=== PATIENT | female | born 1950 | race Caucasian/White ===

== ENCOUNTER 2016-04-09 05:43 | Day surgery (SDC) | payer MEDICARE ==
[2016-04-09] MEDS ORDERED: Lactated Ringers 1,000 ML IV SCH (06:30)
[2016-04-09] MEDS ORDERED: Versed 2 MG/2 ML Injection IV ONE (08:00)
[2016-04-09] MEDS ORDERED: Ephedrine Sulfate 50 MG/ML IV ONE (08:00)
[2016-04-09] MEDS ORDERED: SUBLIMAZE 100 MCG/2 ML IV ONE (08:00)
[2016-04-09] MEDS ORDERED: DIPRIVAN 200 MG/20 ML IV ONE (08:00)
--- NOTE | 2016-04-09 08:31 | OP ---
SURGERY DATE: 04/09/16 SURGERY TIME: 721 PREOPERATIVE DIAGNOSIS: 1. SCREENING EXAM. POSTOPERATIVE DIAGNOSIS: 1. SIGMOID DIVERTICULOSIS. PROCEDURE: 1. Colonoscopy. SURGEON: Dr. Hubbard. ANESTHESIA: MAC, medications given by the Anesthesia Department. BRIEF HISTORY: The patient is a 65 y/o WF presenting now for her first screening colonoscopy. She was appraised of the risks of the procedure including the risk of perforation, phlebitis, untoward reaction to medication, bleeding, and missed lesions. The patient verbalized her understanding and desired to have the procedure performed. DESCRIPTION OF PROCEDURE: The patient was given the medications by the Anesthesia Department. She had continuous pulse oximetry, ECG monitoring, intermittent BP monitoring, and end tidal CO2 monitoring during the examination. She was placed in the left lateral decubitus position. A digital rectal examination was performed and revealed normal anal sphincter tone and no masses. The flexible Olympus pediatric colonoscope was used to intubate the rectum. A view of the colon was developed sequentially to the cecum. Upon insertion and withdrawal, including a retroflex view in the rectum, no mucosal lesions were encountered other than the sigmoid diverticula. The scope was removed from the patient who tolerated the procedure well and was sent back to OP recovery in good condition. The prep was noted to be fair.
[2016-04-09 08:47] VITALS: BP 132/41; PULSE 77; O2SAT 98
== END 2016-04-09 09:00 | disposition home or self-care (01) ==
LOC: SDC 05:43 → EDSTATUS 14:30
PROVIDERS: ATTEND Family Medicine
PROC: 0DJD8ZZ Inspection of Lower Intestinal Tract, Via Natural or Artificial Opening Endoscopic (ICD-10-PCS; principal; 2016-04-09)
DX: Z12.11 Encounter for screening for malignant neoplasm of colon (principal); K57.30 Diverticulosis of large intestine without perforation or abscess without bleeding; I10 Essential (primary) hypertension; E11.9 Type 2 diabetes mellitus without complications; F41.9 Anxiety disorder, unspecified; K21.9 Gastro-esophageal reflux disease without esophagitis
CPT/HCPCS: G0121 ×2; 00810; 82962; J2250; J2704; J3010

== ENCOUNTER 2016-08-21 18:46 | Emergency (ER) | payer MEDICARE ==
--- NOTE | 2016-08-21 19:04 | ERPHSYRPT ---
- History of Present Illness Time Seen by Provider: 08/21/16 18:59 Source: patient, family, EMS Exam Limitations: no limitations Patient Subjective Stated Complaint: near syncope Triage Nursing Assessment: states was sitting out at the [place] and sugar was 86 so she was eating and drinking a wine cooler and she 'got hot and eased myself down' denies loc. blood sugar en route 139. skin warm and dry. denies loc Physician History: pt felt light headed at [place] , di dnot fall and has no current symptomos and had no CP or abd pain; has had CHF in past but no stents were indicated. She is diabetic but glucose was 86; BP was elevated but imp[roved; normal neuro at this time; Witnessed: by family, bystander Prior Episodes: single episode today Timing/Duration: today Precipitating Factors: none Context: standing Loss of Consciousness: no loss of consciousness Charcter of event(s): felt faint Allergies/Adverse Reactions: No Known Drug Allergies Allergy (Verified 08/21/16 18:52) Home Medications: Albuterol Sulfate [Albuterol Sulfate Hfa] 2 puff IH QID 02/04/14 [History] Aspirin 81 mg PO DAILY 02/04/14 [History] Calcium Carbonate/Vitamin D3 [Calcium 600 + Vit D Tablet] 1 tab PO BID 02/04/14 [History] Magnesium Oxide 400 mg [Mag-Ox 400] 400 mg PO BID 02/04/14 [History] Metformin HCl 1000 mg [Glucophage 1000 MG] 1,000 mg PO BID 02/04/14 [History] Metoprolol Tartrate 50 mg [Lopressor 50 MG] 50 mg PO BID 02/04/14 [History ] Omeprazole 20 MG [Prilosec 20 mg] 20 mg PO DAILY 02/04/14 [History] Pravastatin Sodium 20 mg PO DAILY 02/04/14 [History] Amlodipine Besylate 5 mg [Norvasc 5 mg] 5 mg PO DAILY 04/06/16 [History] Lisinopril/Hydrochlorothiazide [Lisinopril-Hctz 20-12.5 mg Tab] 2 each PO DAILY 04/06/16 [History] Hydralazine HCl 10 mg PO TID 04/09/16 [History] Hx Tetanus, Diphtheria Vaccination/Date Given: Yes Hx Influenza Vaccination/Date Given: Yes Hx Pneumococcal Vaccination/Date Given: No Immunizations Up to Date: Yes - Past Medical History Pertinent Past Medical History: Yes Neurological History: No Pertinent History ENT History: No Pertinent History Cardiac History: Hypertension Respiratory History: No Pertinent History Endocrine Medical History: Diabetes Type II Musculoskeletal History: No Pertinent History GI Medical History: GERD History: No Pertinent History Psycho-Social History: Anxiety Female Reproductive Disorders: No Pertinent History - Past Surgical History Past Surgical History: Yes Neuro Surgical History: No Pertinent History Cardiac: Cardiac Catheterization Respiratory: No Pertinent History Gastrointestinal: No Pertinent History, Hernia Repair Genitourinary: No Pertinent History Musculoskeletal: No Pertinent History Female Surgical History: Tubal Ligation - Social History Smoking Status: Never smoker Exposure to second hand smoke: Yes Drug Use: none Patient Lives Alone: Yes - Review of Systems Constitutional: No Fever, No Chills Eyes: No Symptoms Ears, Nose, & Throat: No Symptoms Respiratory: No Cough, No Dyspnea Cardiac: No Chest Pain, No Edema, No Syncope Abdominal/Gastrointestinal: No Abdominal Pain, No Nausea, No Vomiting, No Diarrhea Genitourinary Symptoms: No Dysuria Musculoskeletal: No Back Pain, No Neck Pain Skin: No Rash Neurological: Dizziness, No Focal Weakness, No Headache, No Paralysis, No Seizure, No Sensory Changes, No Vertigo Psychological: No Symptoms Endocrine: No Symptoms Hematologic/Lymphatic: No Symptoms Immunological/Allergic: No Symptoms All Other Systems: Reviewed and Negative Physical Exam - Nursing Vital Signs Nursing Vital Signs: Initial Vital Signs Temperature 97.9 F Temperature Source Oral Pulse Rate 82 Respiratory Rate 16 Blood Pressure [] 148/51 Pain Intensity 0 - [place] Coma Scale Best Eye Response (Pita): (4) open spontaneously Best Verbal Response (Orient): (5) oriented Best Motor Response (Orient): (6) obeys commands Pita Total: 15 - Physical Exam General Appearance: no apparent distress, alert Eye Exam: bilateral eye: PERRL, EOMI Ears, Nose, Throat Exam: normal ENT inspection, pharynx normal, moist mucous membranes Neck Exam: normal inspection, non-tender, supple, full range of motion Respiratory: normal breath sounds, lungs clear, airway intact, No chest tenderness, No respiratory distress Cardiovascular: regular rate/rhythm, normal heart sounds, normal peripheral pulses, capillary refill <2 sec, No murmur, No pulse deficit Gastrointestinal: soft, No tenderness, No distention, No mass Pelvic Exam: deferred Rectal Exam: deferred Back Exam: normal inspection, normal range of motion, No CVA tenderness, No vertebral tenderness Extremity Exam: normal inspection, normal range of motion, pelvis stable, No tenderness Peripheral Pulses: carotid (R): 2+, carotid (L): 2+, femoral (R): 2+, femoral (L ): 2+, dorsalis-pedis (R): 2+, dorsalis-pedis (L): 2+ 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, oriented x 3, 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 ), Non-specific ST Changes - Radiology Exams Chest X-ray Interpretation: Reviewed by me, Other (mild cardiomeg and congestion.) Ordered Tests: Active Orders 24 hr Category Date Time Status Grain Elevator Agent STAT Care 08/21/16 19:04 Active Clean Catch Urine Specimen STAT Care 08/21/16 19:04 Active EKG-ER Only STAT Care 08/21/16 19:04 Active IV Insertion STAT Care 08/21/16 19:04 Active Pulse Oximetry (ED) STAT Care 08/21/16 19:04 Active CHEST 1 VIEW (PORTABLE) Stat Exams 08/21/16 19:04 Taken AMYLASE Stat Lab 08/21/16 19:33 Completed CBC W DIFF Stat Lab 08/21/16 19:33 Completed CMP Stat Lab 08/21/16 19:33 Completed CULTURE,URINE Stat Lab 08/21/16 19:11 Received LIPASE Stat Lab 08/21/16 19:33 Completed Lactic Acid Stat Lab 08/21/16 19:24 Results Lactic Acid Stat Lab 08/21/16 20:01 Ordered NT PRO BNP Stat Lab 08/21/16 19:33 Completed Occult Blood,Stool Other Stat Lab 08/21/16 19:11 Completed TROPONIN Stat Lab 08/21/16 19:33 Completed UA W/ MICROSCOPIC Stat Lab 08/21/16 19:11 Completed Medication Summary Generic Name Dose Route Start Last Admin Trade Name Rashmi PRN Reason Stop Dose Admin Sodium Chloride 1,000 mls @ 50 mls/hr 08/21/16 19:15 08/21/16 19:13 Sodium Chloride 0.9% 1000 Ml IV 09/20/16 19:14 50 mls/hr .Q20H ALBA Administration Ceftriaxone Sodium/Dextrose 1 g in 50 mls @ 100 mls/hr 08/21/16 20:15 20:22 Rocephin 1 Gm-D5w 50 Ml Bag IV 08/21/16 20:44 100 mls/hr STAT STA Administration Discontinued Medications Generic Name Dose Route Start Last Admin Trade Name Rashmi PRN Reason Stop Dose Admin Sodium Chloride 250 mls @ 999 mls/hr 08/21/16 20:00 08/21/16 20:14 Sodium Chloride 0.9% 1000 Ml IV 08/21/16 20:15 999 mls/hr .Q16M STA Administration Ceftriaxone Sodium/Dextrose Confirm 08/21/16 20:20 Rocephin 1 Gm-D5w 50 Ml Bag Administered 08/21/16 20:21 Dose 1 g in 50 mls @ ud IV .STK-MED ONE Lorazepam 0.5 mg 08/21/16 19:07 08/21/16 19:12 Ativan 0.5 Mg PO 08/21/16 19:08 0.5 mg STAT ONE Administration Lorazepam Confirm 08/21/16 19:11 Ativan 1 Mg Administered 08/21/16 19:12 Dose 1 mg .ROUTE .STK-MED ONE Lab/Rad Data: Laboratory Result Diagrams 08/21/16 19:33 08/21/16 19:33 Laboratory Results 08/21/16 08/21/16 08/21/16 Range/Units 19:33 19:33 19:24 WBC 9.3 (4.0-10.5) K/mm3 RBC 3.55 L (4.1-5.4) M/mm3 Hgb 8.9 L (12.0-16.0) gm/dl Hct 28.6 L (35-47) % MCV 80.6 (78-100) fl MCH 25.0 L (26-32) pg MCHC 31.1 L (32-36) g/dl RDW 16.2 H (11.5-14.0) % Plt Count 297 (150-450) K/mm3 MPV 11.4 H (6-9.5) fl Gran % 76.5 H (36.0-66.0) % Lymphocytes % 16.4 L (24.0-44.0) % Monocytes % 5.4 (0.0-12.0) % Eosinophils % 1.3 (0.00-5.0) % Basophils % 0.4 (0.0-0.4) % Basophils # 0.04 (0-0.4) Sodium 139 (136-145) mEq/L Potassium 4.0 (3.5-5.1) mEq/L Chloride 102 (98-107) mEq/L Carbon Dioxide 23.1 (21-32) mEq/L Anion Gap 17.9 H (5-15) MEQ/L BUN 25 H (9-20) mg/dL Creatinine 1.55 H (0.55-1.30) mg/dl Estimated GFR 35 ML/MIN Glucose 119 H (70-110) MG/DL Lactic Acid 3.3 H (0.4-2.0) Calcium 9.2 (8.5-10.1) mg/dL Total Bilirubin 0.20 (0.2-1.0) mg/dL AST 16 (15-37) U/L ALT 18 (12-78) U/L Alkaline Phosphatase 62 (46-116) U/L Troponin I 0.024 (0.000-0.056) ng/ml NT-Pro-B Natriuret Pep 395 H (0-125) pg/ml Serum Total Protein 8.1 (6.4-8.2) gm/dL Albumin 3.9 (3.4-5.0) g/dL Amylase 87 (25-115) U/L Lipase 208 (73-393) U/L Ur Collection Type Urine Color (YELLOW) Urine Appearance (CLEAR) Urine pH (5-6) Ur Specific [place] (1.005-1.025) Urine Protein (Negative) Urine Ketones (NEGATIVE) Urine Blood (0-5) Yogesh/ul Urine Nitrite (NEGATIVE) Urine Bilirubin (NEGATIVE) Urine Urobilinogen (0-1) mg/dL Ur Leukocyte Esterase (NEGATIVE) Urine Microscopic RBC (0-2) /HPF Urine Microscopic WBC (0-5) /HPF Ur Epithelial Cells (FEW) /HPF Urine Bacteria (NEGATIVE) /HPF Urine Mucus (NEGATIVE) /HPF Urine Glucose (NEGATIVE) mg/dL Stool Occult Blood (Negative) Specimen Received 08/21/16 08/21/16 Range/Units 19:11 19:11 WBC (4.0-10.5) K/mm3 RBC (4.1-5.4) M/mm3 Hgb (12.0-16.0) gm/dl Hct (35-47) % MCV (78-100) fl MCH (26-32) pg MCHC (32-36) g/dl RDW (11.5-14.0) % Plt Count (150-450) K/mm3 MPV (6-9.5) fl Gran % (36.0-66.0) % Lymphocytes % (24.0-44.0) % Monocytes % (0.0-12.0) % Eosinophils % (0.00-5.0) % Basophils % (0.0-0.4) % Basophils # (0-0.4) Sodium (136-145) mEq/L Potassium (3.5-5.1) mEq/L Chloride (98-107) mEq/L Carbon Dioxide (21-32) mEq/L Anion Gap (5-15) MEQ/L BUN (9-20) mg/dL Creatinine (0.55-1.30) mg/dl Estimated GFR ML/MIN Glucose (70-110) MG/DL Lactic Acid (0.4-2.0) Calcium (8.5-10.1) mg/dL Total Bilirubin (0.2-1.0) mg/dL AST (15-37) U/L ALT (12-78) U/L Alkaline Phosphatase (46-116) U/L Troponin I (0.000-0.056) ng/ml NT-Pro-B Natriuret Pep (0-125) pg/ml Serum Total Protein (6.4-8.2) gm/dL Albumin (3.4-5.0) g/dL Amylase (25-115) U/L Lipase (73-393) U/L Ur Collection Type CLEAN CATCH Urine Color YELLOW (YELLOW) Urine Appearance CLOUDY (CLEAR) Urine pH 6.0 (5-6) Ur Specific [place] 1.010 (1.005-1.025) Urine Protein TRACE (Negative) Urine Ketones NEGATIVE (NEGATIVE) Urine Blood 50 (0-5) Yogesh/ul Urine Nitrite POSITIVE (NEGATIVE) Urine Bilirubin NEGATIVE (NEGATIVE) Urine Urobilinogen NORMAL (0-1) mg/dL Ur Leukocyte Esterase 2+ (NEGATIVE) Urine Microscopic RBC 10-15 (0-2) /HPF Urine Microscopic WBC 25-50 (0-5) /HPF Ur Epithelial Cells MODERATE (FEW) /HPF Urine Bacteria MANY (NEGATIVE) /HPF Urine Mucus MANY (NEGATIVE) /HPF Urine Glucose NEGATIVE (NEGATIVE) mg/dL Stool Occult Blood NEGATIVE (Negative) Specimen Received 08/21/16 1930 - Progress Progress: improved, re-examined Progress Note: 08/21/16 20:32 discussed with family , pt and Dr hines covering cardio for Dr Ramos and all agree best to transfer pt to [facility] for further eval and Tx; Discussed with Dr.: Other (Dr Ruddy Hines at [facility]) Counseled pt/family regarding: lab results, diagnosis, need for follow-up, rad results - Departure Time of Disposition: 20:33 Departure Disposition: Transfer Clinical Impression: Diabetes mellitus, UTI (lower urinary tract infection), near syncope with elevated troponin Condition: Good Critical Care Time: No
[2016-08-21] MEDS ORDERED: Ativan 0.5 MG PO ONE (19:07)
[2016-08-21] MEDS ORDERED: Ativan 1 MG ONE (19:11)
[2016-08-21] MEDS ORDERED: Sodium Chloride 0.9% 1000 ML 1,000 ML IV SCH (19:15)
[2016-08-21 19:27] LABS: Lactic Acid 3.3 (0.4-2.0)
[2016-08-21 19:36] LABS: BASOPHIL % 0.4 % (0.0-0.4); Eosinophil % 1.3 % (0.00-5.0); Granulocytes % 76.5 % (36.0-66.0); Lymphocytes % 16.4 % (24.0-44.0); Mean Cell Volume 80.6 fl (78-100); Mean Platelet Volume 11.4 fl (6-9.5); Monocytes % 5.4 % (0.0-12.0); Platelet Count 297 K/mm3 (150-450); Red Blood Count 3.55 M/mm3 (4.1-5.4); Red Cell Distribution Width 16.2 % (11.5-14.0); White Blood Count 9.3 K/mm3 (4.0-10.5)
[2016-08-21 19:52] LABS: ADD URINE CULTURE? YES (NO); Bacteria MANY /HPF (NEGATIVE); Bilirubin NEGATIVE (NEGATIVE); Blood 50 Ery/ul (0-5); COMPLETE URINE MICROSCOPIC? YES; Collection Type CLEAN CATCH; Epithelial Cells MODERATE /HPF (FEW); Glucose NEGATIVE (NEGATIVE); Leukocyte Esterase 2+ (NEGATIVE); Mucus MANY /HPF (NEGATIVE); WBC 25-50 /HPF (0-5)
[2016-08-21 20:00] LABS: ALBUMIN 3.9 g/dL (3.4-5.0); ANION GAP 17.9 MEQ/L (5-15); BILIRUBIN,TOTAL 0.2 mg/dL (0.2-1.0); Carbon Dioxide 23.1 mEq/L (21-32); TROPONIN 0.024 ng/ml (0.000-0.056); Total Protein 8.1 gm/dL (6.4-8.2)
[2016-08-21] MEDS ORDERED: ROCEPHIN 1 Gm-D5w 50 ml Bag** 1 G/50 ML IVPB IV STA (20:15)
[2016-08-21] MEDS ORDERED: ROCEPHIN 1 Gm-D5w 50 ml Bag** 1 G/50 ML IVPB IV ONE (20:20)
[2016-08-21 21:04] VITALS: BP 135/97; PULSE 81; O2SAT 95
--- NOTE | 2016-08-22 08:25 | XRAY ---
Indication: Near syncope. Comparison: January 24, 2009 Portable chest remains clear. Heart and mediastinal structures within normal limits for AP portable technique. Bony thorax intact again with mild osteopenia and degenerative changes. Impression: Stable nonacute chest.
== END 2016-08-21 21:18 | disposition short-term general hospital (02) ==
LOC: ED 18:46
DX: E11.9 Type 2 diabetes mellitus without complications (principal); N39.0 Urinary tract infection, site not specified; R55 Syncope and collapse; R79.1 Abnormal coagulation profile; R42 Dizziness and giddiness; D64.9 Anemia, unspecified
CPT/HCPCS: 36000; 36415; 71010; 80053; 81000; 82150; 82272; 83605; 83690; 83880; 84484; 85025; 87086; 93005; 93041; 96360; 99285; J0696; A9270-GY

== ENCOUNTER 2017-02-11 15:03 | Inpatient (IN) | payer MEDICARE ==
--- NOTE | 2017-02-11 15:28 | ERPHSYRPT ---
- History of Present Illness Time Seen by Provider: 02/11/17 15:15 Source: patient Exam Limitations: clinical condition Physician History: 66 y/o female with history of ME, DM and HTN brought in by ambulance for acute onset confusion, difficulty remembering and saying words that started at 12pm. Pt states that she feels off and a mild headache. Pt denies any fall, weakness, numbness, heaviness of tongue, dizziness, headache, chest pain, shortness of breath, chest pain or palpitations. Pt is on ASA. Pt lives with her daughter but could not remember her daughter's name. Timing/Duration: today Character of Deficits: unable to speak Baseline/Normal Cognition: alert but confused Current Cognition: alert but confused Associated Symptoms: confusion Allergies/Adverse Reactions: No Known Drug Allergies Allergy (Verified 08/21/16 18:52) Home Medications: Albuterol Sulfate [Albuterol Sulfate Hfa] 2 puff IH QID 02/04/14 [History] Aspirin 81 mg PO DAILY 02/04/14 [History] Calcium Carbonate/Vitamin D3 [Calcium 600 + Vit D Tablet] 1 tab PO BID 02/04/14 [History] Magnesium Oxide 400 mg [Mag-Ox 400] 400 mg PO BID 02/04/14 [History] Metformin HCl 1000 mg [Glucophage 1000 MG] 1,000 mg PO BID 02/04/14 [History] Metoprolol Tartrate 50 mg [Lopressor 50 MG] 50 mg PO BID 02/04/14 [History ] Omeprazole 20 MG [Prilosec 20 mg] 20 mg PO DAILY 02/04/14 [History] Pravastatin Sodium 20 mg PO DAILY 02/04/14 [History] Amlodipine Besylate 5 mg [Norvasc 5 mg] 5 mg PO DAILY 04/06/16 [History] Lisinopril/Hydrochlorothiazide [Lisinopril-Hctz 20-12.5 mg Tab] 2 each PO DAILY 04/06/16 [History] Hydralazine HCl 10 mg PO TID 04/09/16 [History] Hx Tetanus, Diphtheria Vaccination/Date Given: Yes Hx Influenza Vaccination/Date Given: Yes Hx Pneumococcal Vaccination/Date Given: No - Review of Systems Constitutional: No Fever, No Chills Eyes: No Symptoms Ears, Nose, & Throat: No Symptoms Respiratory: No Cough, No Dyspnea Cardiac: No Chest Pain, No Edema, No Syncope Abdominal/Gastrointestinal: No Abdominal Pain, No Nausea, No Vomiting, No Diarrhea Genitourinary Symptoms: No Dysuria Musculoskeletal: No Back Pain, No Neck Pain Skin: No Rash Neurological: Headache, Speech Changes, No Dizziness, No Focal Weakness, No Sensory Changes Psychological: No Symptoms Endocrine: No Symptoms All Other Systems: Reviewed and Negative - Past Medical History Pertinent Past Medical History: Yes Neurological History: No Pertinent History ENT History: No Pertinent History Cardiac History: Hypertension Respiratory History: No Pertinent History Endocrine Medical History: Diabetes Type II Musculoskeletal History: No Pertinent History GI Medical History: GERD History: No Pertinent History Psycho-Social History: Anxiety Female Reproductive Disorders: No Pertinent History - Past Surgical History Past Surgical History: Yes Neuro Surgical History: No Pertinent History Cardiac: Cardiac Catheterization Respiratory: No Pertinent History Gastrointestinal: No Pertinent History, Hernia Repair Genitourinary: No Pertinent History Musculoskeletal: No Pertinent History Female Surgical History: Tubal Ligation - Social History Smoking Status: Never smoker Exposure to second hand smoke: Yes Drug Use: none Patient Lives Alone: Yes - Nursing Vital Signs Nursing Vital Signs: Initial Vital Signs Temperature 98.6 F 02/11/17 15:04 Pulse Rate 89 02/11/17 15:04 Respiratory Rate 20 02/11/17 15:04 Blood Pressure 141/86 02/11/17 15:04 O2 Sat by Pulse Oximetry 98 02/11/17 15:04 Pain Scale Pain Intensity 4 - [place] Coma Scale Best Eye Response (Pita): (4) open spontaneously Best Verbal Response ([place]): (3) inappropriate words Best Motor Response ([place]): (6) obeys commands Pita Total: 13 - Physical Exam General Appearance: no apparent distress, alert Eye Exam: bilateral eye: PERRL, EOMI Ears, Nose, Throat Exam: normal ENT inspection, moist mucous membranes Neck Exam: normal inspection, non-tender, supple Respiratory: normal breath sounds, lungs clear, airway intact, No respiratory distress Cardiovascular: regular rate/rhythm, No edema Gastrointestinal: soft, No tenderness, No distention Back Exam: normal inspection Extremity Exam: normal inspection, No pedal edema 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, 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 Exam: normal hearing, abnormal speech, tongue midline, No normal speech Coordination/Gait: normal finger to nose, normal gait Motor/Sensory: no motor deficit, no sensory deficit, no pronator drift Skin Exam: normal color, warm, dry, No rash SpO2 Interpretation: normal - Course Nursing assessment & vital signs reviewed: Yes EKG Interpreted by Me: RATE (HR 90), NORMAL AXIS, NORMAL INTERVALS, NORMAL QRS, Non-specific ST Changes Ordered Tests: Active Orders 24 hr Category Date Time Status Correctional Case Records Supervisor STAT Care 02/11/17 15:21 Active EKG-ER Only STAT Care 02/11/17 15:21 Active Breaux [Catheter-Elmer Breaux] STAT Care 02/11/17 16:49 Active IV Insertion STAT Care 02/11/17 15:21 Active NPO (ED) STAT Care 02/11/17 15:21 Active CHEST 1 VIEW (PORTABLE) Stat Exams 02/11/17 15:[address] ANGIOGRAPHY NECK [CT] Stat Exams 02/11/17 15:59 Taken CTA HEAD W AND/OR WO CONTRAST [CT] Stat Exams 02/11/17 15:59 Taken HEAD WITHOUT CONTRAST [CT] Stat Exams 02/11/17 15:21 Completed CBC W DIFF Stat Lab 02/11/17 15:25 Completed CMP Stat Lab 02/11/17 15:25 Completed CULTURE,URINE Stat Lab 02/11/17 15:21 Received ESR [Erythrocyte Sedimentation Rate] Stat Lab 02/11/17 15:25 Completed PTT Stat Lab 02/11/17 16:13 Completed TROPONIN Q3H Lab 02/11/17 15:25 Completed TROPONIN Q3H Lab 02/12/17 00:30 Ordered TROPONIN Q3H Lab 02/12/17 03:30 Ordered UA W/ MICROSCOPIC Stat Lab 02/11/17 15:21 Completed Medication Summary Discontinued Medications Generic Name Dose Route Start Last Admin Trade Name Freq PRN Reason Stop Dose Admin Aspirin 325 mg 02/11/17 15:59 02/11/17 16:47 Ecotrin 325 Mg PO 02/11/17 16:00 325 mg ONCE ONE Administration Clopidogrel Bisulfate 75 mg 02/11/17 19:08 Plavix 75 Mg Tablet PO 02/11/17 19:09 STAT ONE Sodium Chloride 1,000 mls @ 999 mls/hr 02/11/17 16:15 02/11/17 16:47 Sodium Chloride 0.9% 1000 Ml IV 02/11/17 17:15 999 mls/hr .Q1H1M STA Administration Sodium Chloride Confirm 12/22/17 16:41 Sodium Chloride 0.9% 1000 Ml Administered 02/11/17 16:42 Dose 1,000 mls @ ud .ROUTE .STK-MED ONE Lab/Rad Data: Laboratory Result Diagrams 02/11/17 15:25 02/11/17 15:25 Laboratory Results 02/11/17 02/11/17 02/11/17 Range/Units 16:13 15:25 15:25 WBC (4.0-10.5) K/mm3 RBC (4.1-5.4) M/mm3 Hgb (12.0-16.0) gm/dl Hct (35-47) % MCV (78-100) fl MCH (26-32) pg MCHC (32-36) g/dl RDW (11.5-14.0) % Plt Count (150-450) K/mm3 MPV (6-9.5) fl Gran % (36.0-66.0) % Lymphocytes % (24.0-44.0) % Monocytes % (0.0-12.0) % Eosinophils % (0.00-5.0) % Basophils % (0.0-0.4) % Basophils # (0-0.4) ESR 34 H (0-20) mm/hr APTT 29.6 (25.3-37.0) SECONDS Sodium 137 (136-145) mEq/L Potassium 4.1 (3.5-5.1) mEq/L Chloride 102 (98-107) mEq/L Carbon Dioxide 25.2 (21-32) mEq/L Anion Gap 14.1 (5-15) MEQ/L BUN 24 H (9-20) mg/dL Creatinine 1.21 (0.55-1.30) mg/dl Estimated GFR 47 ML/MIN Glucose 115 H (70-110) MG/DL Calcium 9.6 (8.5-10.1) mg/dL Total Bilirubin 0.30 (0.2-1.0) mg/dL AST 19 (15-37) U/L ALT 18 (12-78) U/L Alkaline Phosphatase 62 (46-116) U/L Troponin I (0.000-0.056) ng/ml Serum Total Protein 8.4 H (6.4-8.2) gm/dL Albumin 4.1 (3.4-5.0) g/dL Ur Collection Type Urine Color (YELLOW) Urine Appearance (CLEAR) Urine pH (5-6) Ur Specific [place] (1.005-1.025) Urine Protein (Negative) Urine Ketones (NEGATIVE) Urine Blood (0-5) Yogesh/ul Urine Nitrite (NEGATIVE) Urine Bilirubin (NEGATIVE) Urine Urobilinogen (0-1) mg/dL Ur Leukocyte Esterase (NEGATIVE) Urine Microscopic RBC (0-2) /HPF Urine Microscopic WBC (0-5) /HPF Ur Epithelial Cells (FEW) /HPF Urine Bacteria (NEGATIVE) /HPF Urine Culture Reflexed (NO) Urine Glucose (NEGATIVE) mg/dL Specimen Received 02/11/17 02/11/17 02/11/17 Range/Units 15:25 15:25 15:21 WBC 11.5 H (4.0-10.5) K/mm3 RBC 3.83 L (4.1-5.4) M/mm3 Hgb 9.5 L (12.0-16.0) gm/dl Hct 30.6 L (35-47) % MCV 79.9 (78-100) fl MCH 24.8 L (26-32) pg MCHC 31.0 L (32-36) g/dl RDW 16.6 H (11.5-14.0) % Plt Count 278 (150-450) K/mm3 MPV 11.3 H (6-9.5) fl Gran % 72.5 H (36.0-66.0) % Lymphocytes % 21.5 L (24.0-44.0) % Monocytes % 4.6 (0.0-12.0) % Eosinophils % 1.1 (0.00-5.0) % Basophils % 0.3 (0.0-0.4) % Basophils # 0.04 (0-0.4) ESR (0-20) mm/hr APTT (25.3-37.0) SECONDS Sodium (136-145) mEq/L Potassium (3.5-5.1) mEq/L Chloride (98-107) mEq/L Carbon Dioxide (21-32) mEq/L Anion Gap (5-15) MEQ/L BUN (9-20) mg/dL Creatinine (0.55-1.30) mg/dl Estimated GFR ML/MIN Glucose (70-110) MG/DL Calcium (8.5-10.1) mg/dL Total Bilirubin (0.2-1.0) mg/dL AST (15-37) U/L ALT (12-78) U/L Alkaline Phosphatase (46-116) U/L Troponin I 0.018 (0.000-0.056) ng/ml Serum Total Protein (6.4-8.2) gm/dL Albumin (3.4-5.0) g/dL Ur Collection Type VOID Urine Color STRAW (YELLOW) Urine Appearance CLEAR (CLEAR) Urine pH 8.0 (5-6) Ur Specific [place] 1.005 (1.005-1.025) Urine Protein 30 (Negative) Urine Ketones NEGATIVE (NEGATIVE) Urine Blood 5-10 (0-5) Yogesh/ul Urine Nitrite NEGATIVE (NEGATIVE) Urine Bilirubin NEGATIVE (NEGATIVE) Urine Urobilinogen NORMAL (0-1) mg/dL Ur Leukocyte Esterase TRACE (NEGATIVE) Urine Microscopic RBC 0-2 (0-2) /HPF Urine Microscopic WBC 2-5 (0-5) /HPF Ur Epithelial Cells RARE (FEW) /HPF Urine Bacteria FEW (NEGATIVE) /HPF Urine Culture Reflexed YES (NO) Urine Glucose NEGATIVE (NEGATIVE) mg/dL Specimen Received 02/11/17 1510 - Progress Progress: improved Progress Note: 02/11/17 19:10 The patient has regained her speech. She is speaking with more clarity and now remembers her name. The initial CT scan head is within normal limits. The CTA head and neck shows left sided 50% ICA stenosis. Pt was given a dose of ASA 325mg and plavix 75mg. The rest of the cardiac workup is within normal limits. The patient has been admitted to Dr Cazares for TIA. - Departure Time of Disposition: 19:12 Departure Disposition: In-patient Admission Clinical Impression: TIA (transient ischemic attack) Qualifiers: Transient cerebral ischemia type: unspecified Qualified Code(s): G45.9 - Transient cerebral ischemic attack, unspecified Condition: Fair Critical Care Time: Yes Critical Care Time(excluding separately billable procedures): 75-104 minutes Referrals: MAYANK LYNN [Primary Care Provider] -
[2017-02-11 15:35] LABS: BASOPHIL % 0.3 % (0.0-0.4); Basophil (Absolute #) 0.04 (0-0.4); Eosinophil % 1.1 % (0.00-5.0); Eosinophil (Absolute #) 0.13 (0-0.5); Granulocyte Absolute (ANC) 8.36 (1.4-6.9); Granulocytes % 72.5 % (36.0-66.0); Hematocrit 30.6 % (35-47); Hemoglobin 9.5 gm/dl (12.0-16.0); Lymphocyte (Absolute #) 2.48 (1.0-4.6); Lymphocytes % 21.5 % (24.0-44.0); Mean Cell Volume 79.9 fl (78-100); Mean Corpuscular Hemoglobin 24.8 pg (26-32); Mean Platelet Volume 11.3 fl (6-9.5); Monocyte (Absolute #) 0.53 (0.0-1.3); Monocytes % 4.6 % (0.0-12.0); Platelet Count 278 K/mm3 (150-450); Red Blood Count 3.83 M/mm3 (4.1-5.4); Red Cell Distribution Width 16.6 % (11.5-14.0); White Blood Count 11.5 K/mm3 (4.0-10.5)
[2017-02-11 15:48] LABS: Appearance CLEAR (CLEAR); Bilirubin NEGATIVE (NEGATIVE); Glucose NEGATIVE (NEGATIVE); Ketones NEGATIVE (NEGATIVE); Leukocyte Esterase TRACE (NEGATIVE); Nitrite NEGATIVE (NEGATIVE); Protein,Urine Dip 30 (Negative); Specific Gravity 1.005 (1.005-1.025); Urobilinogen NORMAL mg/dL (0-1)
[2017-02-11 15:49] LABS: Bacteria FEW /HPF (NEGATIVE); Epithelial Cells RARE /HPF (FEW)
[2017-02-11 15:53] LABS: ALBUMIN 4.1 g/dL (3.4-5.0); ANION GAP 14.1 MEQ/L (5-15); BILIRUBIN,TOTAL 0.3 mg/dL (0.2-1.0); Calcium 9.6 mg/dL (8.5-10.1); Carbon Dioxide 25.2 mEq/L (21-32); Creatinine 1 1.21 mg/dl (0.55-1.30); Potassium 4.1 mEq/L (3.5-5.1); Total Protein 8.4 gm/dL (6.4-8.2)
--- NOTE | 2017-02-11 15:53 | XRAY ---
Indication: CVA. Multiple contiguous axial images obtained through the head without contrast. Comparison: None Age-appropriate global atrophy. No acute intracranial hemorrhage, abnormal extra-axial fluid collection, or mass effect. Fourth ventricle is midline without hydrocephalus. Sood-white matter differentiation is preserved. Bony calvarium intact. There is partial opacification of the inferior right mastoid air cells. Remaining visualized paranasal sinuses and left mastoid air cells are clear. Impression: No acute intracranial abnormalities. Incidental partial opacification of the right mastoid air cells presumed inflammatory. CTDI 70.55
[2017-02-11] MEDS ORDERED: Ecotrin 325 MG PO ONE (15:59)
--- NOTE | 2017-02-11 16:02 | XRAY ---
Indication: Patient states "doesn't feel right." CVA. Comparison: August 21, 2016. Portable chest again demonstrates normal heart and lungs. Bony thorax intact again with mild osteopenia and degenerative changes. No new/acute findings. Impression: Stable nonacute chest.
[2017-02-11] MEDS ORDERED: Sodium Chloride 0.9% 1000 ML 1,000 ML IV STA (16:15)
[2017-02-11] MEDS ORDERED: Sodium Chloride 0.9% 1000 ML 1,000 ML ONE (16:41)
[2017-02-11] MEDS ORDERED: PLAVIX 75 MG Tablet PO ONE (19:08)
[2017-02-11] MEDS ORDERED: Zofran 4 MG/2 ML VIAL IV PRN (19:13)
[2017-02-11] MEDS ORDERED: TYLENOL 325 MG PO PRN (19:13)
[2017-02-11] MEDS ORDERED: Senokot-S Tablet PO PRN (19:13)
[2017-02-11] MEDS ORDERED: MAALOX ES 30 ML UNIT DOSE PO PRN (19:13)
[2017-02-11] MEDS ORDERED: MILK OF MAGNESIA 30 ML PO PRN (19:13)
[2017-02-11] MEDS ORDERED: PLAVIX 75 MG Tablet ONE (19:14)
--- NOTE | 2017-02-11 21:13 | XRAY ---
Indication: CVA. Conventional CTA neck was performed using 60 cc Isovue 370 contrast. Two-dimensional sagittal and coronal reformatted images obtained. Comparison: None Aortic arch not included. Right common carotid artery is normal in course and caliber. Minimal calcified plaquing at the level of the bulb and mild calcified plaquing in the proximal internal carotid artery producing less than 50% stenosis. External carotid artery normal in CTA appearance. Left common carotid artery normal in course and caliber with minimal calcified plaquing. Mild/moderate calcified plaquing in the proximal internal carotid artery producing 50-60% stenosis. External carotid artery normal in CTA appearance. Left vertebral artery is dominant in size. Distal right vertebral artery is occluded. Distal left vertebral artery is patent supplying the basilar artery and posterior cerebral circulation. Jugular veins bilaterally patent. Visualized soft tissues demonstrate small centimeter/subcentimeter cervical lymph nodes bilaterally. Thyroid gland enhances homogeneously. Supra and infraglottic airway widely patent. Underlying cervical spine intact with minimal/mild multilevel degenerative disc disease, greatest at the C5-C6 level. Lung apices are clear. Impression: 1. Right carotid circulation demonstrates minimal plaquing at the level of the bulb and proximal internal carotid artery producing less than 50% stenosis. 2. Left carotid circulation demonstrates mild/moderate plaquing greatest in the proximal internal carotid artery producing 50-60% stenosis. 3. Dominant left vertebral artery supplying the basilar artery and posterior cerebral circulation. Distal right vertebral artery occlusion. CTDI 92.44
--- NOTE | 2017-02-11 21:20 | XRAY ---
Indication: CVA. Conventional CTA head was performed using 60 cc Isovue 370 contrast. Two-dimensional sagittal and coronal reformatted images obtained. Comparison: None CTA neck reported separately. Distal internal carotid arteries are bilaterally symmetric. There is minimal calcifications of the parasellar internal carotid arteries bilaterally without critical stenosis/obstruction. Normal carotid terminus with normal branching A1 and M1 segments bilaterally. The more distal anterior cerebral and middle cerebral arteries including anterior communicating arteries are normal in CTA appearance. Left posterior communicating artery not seen either occluded or too small for resolution of exam. Posterior circulation demonstrates occluded distal right vertebral artery and patent left vertebral artery. Basilar artery is normal in course and caliber. Basilar tip and posterior cerebral arteries are normal in CTA appearance. Whole brain images are negative for abnormal enhancing intra-or extra-axial mass. No thrombus seen in the superior/inferior sagittal sinuses or venous sinuses. CT head reported separately. Impression: 1. Minimal calcifications in the parasellar internal carotid arteries without critical stenosis/obstruction. 2. Occluded distal right vertebral artery with patent left artery supplying basilar artery and posterior cerebral circulation. 3. Remaining CTA is negative. CTDI 92.44
[2017-02-11] MEDS ORDERED: Apresoline 25 MG TABLET PO SCH (22:00)
[2017-02-11] MEDS: Sodium Chloride 0.9% 1000 ML 1,000 ML IV SCH (22:07)
[2017-02-11] MEDS: Lopressor 50 MG PO SCH (22:07)
[2017-02-12] MEDS ORDERED: MILK OF MAGNESIA 30 ML PO PRN (01:11)
[2017-02-12] MEDS ORDERED: Zofran 4 MG/2 ML VIAL IV PRN (01:11)
[2017-02-12] MEDS ORDERED: Nitrostat 0.4 MG Tablet SL PRN (01:11)
[2017-02-12] MEDS: ENOXAPARIN SODIUM SQ SCH ×2 (02:55→11:10)
[2017-02-12 03:48] LABS: Hematocrit 26.6 % (35-47); Hemoglobin 8.3 gm/dl (12.0-16.0); Mean Cell Volume 79.4 fl (78-100); Mean Corpuscular Hgb Concent. 31.2 g/dl (32-36); Mean Platelet Volume 10.9 fl (6-9.5); Platelet Count 284 K/mm3 (150-450); Red Blood Count 3.35 M/mm3 (4.1-5.4); Red Cell Distribution Width 16.8 % (11.5-14.0); White Blood Count 8.5 K/mm3 (4.0-10.5)
[2017-02-12] MEDS: PROVENTIL COMMON CANISTER IH SCH ×5 (03:57→20:33)
[2017-02-12 04:04] LABS: Mean Corpuscular Hemoglobin 24.7 pg (26-32)
[2017-02-12 04:18] LABS: Risk Ratio 2.7
[2017-02-12 04:19] LABS: ALBUMIN 3.3 g/dL (3.4-5.0); ANION GAP 12.1 MEQ/L (5-15); BILIRUBIN,TOTAL 0.4 mg/dL (0.2-1.0); Calcium 8.6 mg/dL (8.5-10.1); Carbon Dioxide 23.9 mEq/L (21-32); Creatinine 1 1.17 mg/dl (0.55-1.30); Potassium 3.7 mEq/L (3.5-5.1); Total Protein 6.8 gm/dL (6.4-8.2)
[2017-02-12] MEDS: Advair Hfa 115/21 Common canister IH SCH ×2 (08:12→20:33)
[2017-02-12] MEDS: Lopressor 50 MG PO SCH ×2 (09:03→21:26)
[2017-02-12] MEDS: Apresoline 25 MG TABLET PO SCH ×3 (09:05→21:25)
[2017-02-12] MEDS ORDERED: Ecotrin 325 MG PO SCH (10:00)
[2017-02-12] MEDS: Sodium Chloride 0.9% 1000 ML 1,000 ML IV SCH (13:00)
--- NOTE | 2017-02-12 15:46 | PCM.HP ---
History of Present Illness - Chief Complaint Chief Complaint: Shortness of Breath History of Present Illness: is a 66 year old female with DM II who started feeling "bad" (weak) yesterday then couldn't speak correctly and couldn't remember her daughter's name. A family member said she looked "corrigan." She denies any paresthesias ( aside from chronic pins and needles in L distal arm), chest pain, chest pressure , arm pain, back pain, or neck pain. She had an episode in 2005 in which she felt weak and she states Dr. Ramos did a heart cath and couldn't decide if she'd had a TIA or a heart attack. - Review of Systems Respiratory: Cough (chronic, a.m.) Neurological: Dizziness (felt lightheaded yesterday), Speech Changes Psychological: No Depression, No Suicidal Ideations All Other Systems: Reviewed and Negative Medications & Allergies Home Medications: Home Medication List Albuterol Sulfate [Albuterol Sulfate Hfa] 2 puff IH QID 02/04/14 [History Confirmed 02/11/17] Aspirin 81 mg PO DAILY 02/04/14 [History Confirmed 02/11/17] Calcium Carbonate/Vitamin D3 [Calcium 600 + Vit D Tablet] 1 tab PO BID 02/04/14 [History Confirmed 02/12/17] Magnesium Oxide 400 mg [Mag-Ox 400] 400 mg PO BID 02/04/14 [History Confirmed 02/11/17] Metformin HCl 1000 mg [Glucophage 1000 MG] 1,000 mg PO BID 02/04/14 [History Confirmed 02/11/17] Metoprolol Tartrate 50 mg [Lopressor 50 MG] 50 mg PO BID 02/04/14 [ History Confirmed 02/11/17] Omeprazole 20 MG [Prilosec 20 mg] 20 mg PO DAILY 02/04/14 [History Confirmed ] Pravastatin Sodium 20 mg PO DAILY 02/04/14 [History Confirmed 02/11/17] Amlodipine Besylate 5 mg [Norvasc 5 mg] 5 mg PO DAILY 04/06/16 [History Confirmed 02/11/17] Lisinopril/Hydrochlorothiazide [Lisinopril-Hctz 20-12.5 mg Tab] 2 each PO DAILY 04/06/16 [History Confirmed 02/11/17] Hydralazine HCl 10 mg PO TID 04/09/16 [History Confirmed 02/11/17] Insulin Aspart [NovoLOG Insulin] 5 units SQ TIDWMEALS 02/12/17 [History Confirmed 02/12/17] Insulin Detemir [Levemir] 25 units SQ QHS 02/12/17 [History Confirmed 02/12/17] Loratadine 10 mg [Claritin 10 mg] 10 mg PO BID 02/12/17 [History Confirmed 02/12/17] Allergies/Adverse Reactions: Allergies Allergy/AdvReac Type Severity Reaction Status Date / Time No Known Drug Allergies Allergy Verified 08/21/16 18:52 - Past Medical History Past Medical History: Yes Neurological History: No Pertinent History ENT History: No Pertinent History Cardiac History: Hypertension Respiratory History: No Pertinent History Endocrine Medical History: Diabetes Type II Musculoskelatal History: No Pertinent History GI Medical History: GERD History: No Pertinent History Pyscho-Social History: Anxiety Reproductive Disorders: No Pertinent History - Female History Are you now?: No - Past Surgical History Past Surgical History: Yes Neuro Surgical History: No Pertinent History Cardiac History: Cardiac Catheterization Respiratory Surgery: No Pertinent History GI Surgical History: No Pertinent History, Hernia Repair Genitourinary Surgical Hx: No Pertinent History Musculskeletal Surgical Hx: No Pertinent History Female Surgical History: Tubal Ligation - Social History Smoking Status: Never smoker Exposure to second hand smoke: No Alcohol: None Drug Use: none - Physical Exam Vital Signs: Vital Signs - 24 hr Temp Pulse Resp BP Pulse Ox 02/12/17 12:00 97 02/12/17 11:22 78 20 97 02/12/17 11:16 98.4 F 74 20 117/60 98 02/12/17 08:12 74 20 97 02/12/17 08:00 97 02/12/17 07:32 98.2 F 70 20 128/64 97 02/12/17 04:00 98.7 F 73 18 133/62 96 02/12/17 03:57 71 18 95 02/12/17 00:00 99.1 F 73 18 122/56 95 02/11/17 20:00 99.6 F 87 16 151/67 97 02/11/17 19:54 98.5 F 73 20 130/87 96 02/11/17 16:48 80 18 95 General Appearance: no apparent distress, alert, obese Neurologic Exam: oriented x 3, cooperative, press operator automatic II-XII nml as tested (CN III- XII normal) Eye Exam: eyes nml inspection Ears, Nose, Throat Exam: moist mucous membranes Respiratory Exam: normal breath sounds, lungs clear, No crackles/rales, No rhonchi, No wheezing Cardiovascular Exam: regular rate/rhythm, normal heart sounds, No murmur Gastrointestinal/Abdomen Exam: soft, normal bowel sounds, No tenderness, No distention, No mass Back Exam: normal inspection, No rash Extremity Exam: swelling (trace LLE pretibial edema) Skin Exam: normal color, warm, dry, No rash Results - Labs Lab/Micro Results: Accuchecks Date 02/12/17 Date 02/12/17 Date 02/11/17 Time 11:30 Time 07:30 Time 21:30 Accucheck Value: 160 Accucheck Value: 115 Accucheck Value: 110 Lab Results-Last 24 Hours 02/12/17 02/12/17 02/12/17 Range/Units 00:43 03:45 03:45 WBC (4.0-10.5) K/mm3 RBC (4.1-5.4) M/mm3 Hgb (12.0-16.0) gm/dl Hct (35-47) % MCV (78-100) fl MCH (26-32) pg MCHC (32-36) g/dl RDW (11.5-14.0) % Plt Count (150-450) K/mm3 MPV (6-9.5) fl Sodium (136-145) mEq/L Potassium (3.5-5.1) mEq/L Chloride (98-107) mEq/L Carbon Dioxide (21-32) mEq/L Anion Gap (5-15) MEQ/L BUN (9-20) mg/dL Creatinine (0.55-1.30) mg/dl Estimated GFR ML/MIN Glucose (70-110) MG/DL Calcium (8.5-10.1) mg/dL Total Bilirubin (0.2-1.0) mg/dL AST (15-37) U/L ALT (12-78) U/L Alkaline Phosphatase (46-116) U/L Troponin I 0.994 H* 0.948 H* (0.000-0.056) ng/ml Serum Total Protein (6.4-8.2) gm/dL Albumin (3.4-5.0) g/dL Triglycerides 59 (30-200) mg/dL Cholesterol 150 (100-200) mg/dL LDL Cholesterol 80 (5-99) mg/dL HDL Cholesterol 56 (35-60) mg/dL Heart Disease Risk Ratio 2.7 02/12/17 02/12/17 Range/Units 03:45 03:45 WBC 8.5 (4.0-10.5) K/mm3 RBC 3.35 L (4.1-5.4) M/mm3 Hgb 8.3 L (12.0-16.0) gm/dl Hct 26.6 L (35-47) % MCV 79.4 (78-100) fl MCH 24.7 L (26-32) pg MCHC 31.2 L (32-36) g/dl RDW 16.8 H (11.5-14.0) % Plt Count 284 (150-450) K/mm3 MPV 10.9 H (6-9.5) fl Sodium 139 (136-145) mEq/L Potassium 3.7 (3.5-5.1) mEq/L Chloride 107 (98-107) mEq/L Carbon Dioxide 23.9 (21-32) mEq/L Anion Gap 12.1 (5-15) MEQ/L BUN 19 (9-20) mg/dL Creatinine 1.17 (0.55-1.30) mg/dl Estimated GFR 49 ML/MIN Glucose 113 H (70-110) MG/DL Calcium 8.6 (8.5-10.1) mg/dL Total Bilirubin 0.40 (0.2-1.0) mg/dL AST 15 (15-37) U/L ALT 17 (12-78) U/L Alkaline Phosphatase 53 (46-116) U/L Troponin I (0.000-0.056) ng/ml Serum Total Protein 6.8 (6.4-8.2) gm/dL Albumin 3.3 L (3.4-5.0) g/dL Triglycerides (30-200) mg/dL Cholesterol (100-200) mg/dL LDL Cholesterol (5-99) mg/dL HDL Cholesterol (35-60) mg/dL Heart Disease Risk Ratio Accuchecks Date 02/12/17 Date 02/12/17 Date 02/11/17 Time 11:30 Time 07:30 Time 21:30 Accucheck Value: 160 Accucheck Value: 115 Accucheck Value: 110 - Other Procedures and Tests Respiratory Therapy 02/12/17 03:39 Respiratory MDI Q4H 02/12/17 06:30 Respiratory MDI BID 02/13/17 05:00 EKG ROUTINE 02/14/17 05:00 EKG ROUTINE Assessment/Plan (1) TIA (transient ischemic attack) Current Visit: Yes Status: Acute Qualifiers: Transient cerebral ischemia type: unspecified Qualified Code(s): G45.9 - Transient cerebral ischemic attack, unspecified Assessment & Plan: Possibly, with her sx of speech changes, unable to remember her daughter's name. She is currently on 325mg ASA daily. Was given one dose of plavix in the ER. On lovenox 40mg SQ daily while in hospital. She had a CTA neck with < 50% occlusion R carotid and 50-60% occlusion L carotid. CT head without acute findings. She did have occluded distal R vertebral artery but patent on the left. (2) Elevated troponin I level Current Visit: Yes Status: Acute Assessment & Plan: She has not had any chest pain or pressure, just the weakness and possibly looking corrigan yesterday. Her EKGs are negative for acute findings. She did have 2 elevated troponins then none were ordered after that and I'm unsure why. I discussed with the pt that we'll see what this current stat troponin (just drawn) looks like and I will discuss with Dr. Mueller, covering for Dr. Ramos. Code(s): R74.8 - ABNORMAL LEVELS OF OTHER SERUM ENZYMES (3) Diabetes mellitus Current Visit: No Status: Acute Qualifiers: Diabetes mellitus type: type 2 Diabetes mellitus complication status: with neurologic complications Diabetes mellitus complication detail: with unspecified neuropathy Diabetes mellitus retirement insulin use: without human services care specialist use Qualified Code(s): E11.40 - Type 2 diabetes mellitus with diabetic neuropathy, unspecified Code(s): E11.9 - TYPE 2 DIABETES MELLITUS WITHOUT COMPLICATIONS
[2017-02-12] MEDS ORDERED: PLAVIX 75 MG Tablet ONE (22:42)
[2017-02-13] MEDS: PROVENTIL COMMON CANISTER IH SCH ×3 (00:20→09:23)
[2017-02-13] MEDS: Sodium Chloride 0.9% 1000 ML 1,000 ML IV SCH (03:16)
[2017-02-13 07:41] VITALS: BP 126/61
[2017-02-13] MEDS: Advair Hfa 115/21 Common canister IH SCH (09:23)
[2017-02-13 09:25] VITALS: PULSE 94; O2SAT 97
[2017-02-13] MEDS ORDERED: NON-FORMULARY ITEM (Aspirin [Aspirin] 81 MG) PO SCH (10:00)
[2017-02-13] MEDS ORDERED: ECOTRIN 81 MG PO SCH (10:00)
[2017-02-13] MEDS ORDERED: NON-FORMULARY ITEM (Pravastatin Sodium [Pravastatin Sodium] 20 MG) PO SCH (10:00)
[2017-02-13] MEDS ORDERED: NON-FORMULARY ITEM (Omeprazole 20 Mg [Prilosec 20 Mg] 20 MG) PO SCH (10:00)
[2017-02-13] MEDS ORDERED: LISINOPRIL PO SCH (10:00)
[2017-02-13] MEDS ORDERED: hydroDIURIL 25 MG PO SCH (10:00)
[2017-02-13] MEDS ORDERED: CLARITIN 10 MG PO SCH (10:00)
[2017-02-13] MEDS ORDERED: Protonix 40MG Tablet PO SCH (10:00)
[2017-02-13] MEDS ORDERED: HYDROCHLOROTHIAZIDE PO SCH (10:00)
[2017-02-13] MEDS ORDERED: Zestril 20 MG PO SCH (10:00)
[2017-02-13] MEDS ORDERED: MAG-OX 400 PO SCH (10:00)
[2017-02-13] MEDS ORDERED: [UNRECOGNIZED DRUG - OTHER] PO SCH (10:00)
[2017-02-13] MEDS ORDERED: NORVASC 5 MG PO SCH (10:00)
--- NOTE | 2017-02-13 10:01 | PCM.DS ---
Discharge Summary Date of Admission: 02/11/17 19:50 Admitting Physician: EDNA GUSTAFSON Primary Care Provider: MAYANK LYNN Allergies Allergies No Known Drug Allergies Allergy (Verified 08/21/16 18:52) Hospital Summary - Hospital Course Hospital Course: Pt of Dr. Lynn admitted with an episode of feeling weak and unable to remember her daughter's name. No other paresthesias. She felt fine at the hospital. At admission and again upon my interview she completely denied any chest pain, chest pressure, arm pain, neck pain. She did have elevated troponins through her first night in the hospital (no EKG changes) and Dr. Arvind Mueller (on for Dr. Ramos) was called. I spoke with him the next day. He agreed with plavix and 81mg ASA daily. He did not want to transfer the patient, but he did want her to come see him in the office on the day of discharge as he will be in doing paperwork. Pt still without any complaint of chest pain. She has cough for the past 1 day and sinus drainage. she was nauseated and received zofran this morning. Tolerated a full breakfast. She went to the bathroom then felt dizzy for a minute. No syncope. Troponins came down through the night, although the last one wa s a little higher than the previous one (0.69 to 0.71). - Vitals & Intake/Output Vital Signs: Vital Signs Temperature 97.8 F 02/13/17 07:40 Pulse Rate 94 H 02/13/17 08:00 Respiratory Rate 18 02/13/17 08:00 Blood Pressure 126/61 02/13/17 07:40 O2 Sat by Pulse Oximetry 97 02/13/17 08:00 Intake & Output: Intake & Output 02/10/17 02/11/17 02/12/17 02/13/17 11:59 11:59 11:59 11:59 Intake Total 770 2624 Output Total 1650 4200 Balance -880 -1576 Weight 95.708 kg 97.069 kg - Lab Result Diagrams: 02/12/17 03:45 02/12/17 03:45 Lab Results-Last 24 Hrs: Accuchecks Date 02/13/17 Date 02/12/17 Date 02/12/17 Time 07:30 Time 16:30 Time 11:30 Accucheck Value: 124 Accucheck Value: 124 Accucheck Value: 146 Accucheck Value: 160 Lab Results-Last 24 Hours 02/12/17 02/12/17 02/12/17 Range/Units 00:45 15:05 17:55 Troponin I 0.717 H* 0.719 H* 0.661 H* (0.000-0.056) ng/ml 02/12/17 Range/Units 21:00 Troponin I 0.692 H* (0.000-0.056) ng/ml Micro Results-Entire Visit: Accuchecks Date 02/13/17 Date 02/12/17 Date 02/12/17 Time 07:30 Time 16:30 Time 11:30 Accucheck Value: 124 Accucheck Value: 124 Accucheck Value: 146 Accucheck Value: 160 - Procedures and Test Procedures and Tests throughout Hospitalization: Therapy Orders & Screens 02/11/17 23:15 EKG ROUTINE Comment: Diagnosis: Shortness of Breath 02/12/17 00:58 RT Screen per Nursing Assess ONCE Comment: Protocol Order Physician Instructions: Greater than 3 points order RT Admission Screen Reason For Exam: Triggered on Admission Diagnosis: Shortness of Breath Diagnosis: Shortness of Breath Home O2: No Asthma: Yes Home CPAP/BIPAP: No Home Nebs/MDI: Yes Total Points: 9 02/12/17 03:39 Respiratory MDI Q4H Comment: ALBUTEROL MDI Q4 Diagnosis: Shortness of Breath 02/12/17 05:00 EKG ROUTINE Comment: Diagnosis: Shortness of Breath 02/12/17 06:30 Respiratory MDI BID Comment: ADV 115/21 Diagnosis: Shortness of Breath 02/13/17 05:00 EKG ROUTINE Comment: Diagnosis: Shortness of Breath 02/14/17 05:00 EKG ROUTINE Comment: Diagnosis: Shortness of Breath Discharge Exam General Appearance: no apparent distress, alert, obese Neurologic Exam: oriented x 3, cooperative Skin Exam: normal color, warm, dry, No rash Eye Exam: eyes nml inspection Ears, Nose, Throat Exam: moist mucous membranes Neck Exam: normal inspection Respiratory Exam: normal breath sounds, lungs clear, No crackles/rales, No rhonchi, No wheezing Cardiovascular Exam: regular rate/rhythm, normal heart sounds, No murmur Extremity Exam: normal inspection, No pedal edema, No swelling Final Diagnosis/Problem List - Final Discharge Diagnosis/Problem (1) TIA (transient ischemic attack) Current Visit: Yes Status: Acute Assessment & Plan: Possibly - pt home on plavix and 81mg ASA daily. (2) Elevated troponin I level Current Visit: Yes Status: Acute Assessment & Plan: she is following up with Dr. Arvind Mueller today in the office per his instruction. Will have all her labs and EKGs copied for him to see today. (3) Diabetes mellitus Current Visit: No Status: Chronic (4) Cough Current Visit: Yes Status: Acute Assessment & Plan: New; lung sounds are clear. I warned pt of high incidence of influenza in the community; any fever needs to return to hospital for testing CARYN. - Discharge Disposition: Home, Self-Care Condition: Stable Prescriptions: New Clopidogrel Bisulfate 75 mg [PLAVIX 75 MG Tablet] 75 mg PO DAILY #30 tablet Continue Albuterol Sulfate [Albuterol Sulfate Hfa] 2 puff IH QID Omeprazole 20 MG [Prilosec 20 mg] 20 mg PO DAILY Metformin HCl 1000 mg [Glucophage 1000 MG] 1,000 mg PO BID Pravastatin Sodium 20 mg PO DAILY Calcium Carbonate/Vitamin D3 [Calcium 600 + Vit D Tablet] 1 tab PO BID Magnesium Oxide 400 mg [Mag-Ox 400] 400 mg PO BID Metoprolol Tartrate 50 mg [Lopressor 50 MG] 50 mg PO BID Amlodipine Besylate 5 mg [Norvasc 5 mg] 5 mg PO DAILY Lisinopril/Hydrochlorothiazide [Lisinopril-Hctz 20-12.5 mg Tab] 2 each PO DAILY Hydralazine HCl 10 mg PO TID Loratadine 10 mg [Claritin 10 mg] 10 mg PO BID Insulin Aspart [NovoLOG Insulin] 5 units SQ TIDWMEALS Insulin Detemir [Levemir] 25 units SQ QHS Aspirin 81 mg PO DAILY #30 tablet Follow up with: MAYANK LYNN [Primary Care Provider] -
[2017-02-13] MEDS: Lopressor 50 MG PO SCH (10:03)
[2017-02-13] MEDS: Apresoline 25 MG TABLET PO SCH (10:04)
[2017-02-13] MEDS ORDERED: NovoLOG Insulin SQ SCH (12:00)
[2017-02-13] MEDS ORDERED: INSULIN DETEMIR 25 UNIT SQ SCH (22:00)
[2017-02-13] MEDS ORDERED: ZOCOR 20MG PO SCH (22:00)
[2017-02-13] MEDS ORDERED: Lantus Insulin SQ SCH (22:00)
[2017-02-14] MEDS ORDERED: PLAVIX 75 MG Tablet PO SCH (10:00)
== END 2017-02-13 10:35 | disposition home or self-care (01) | DRG 69 ==
LOC: ED 15:03 → MED SURG 19:50
PROVIDERS: ADMIT Family Medicine; ATTEND Family Medicine
DX: G45.9 Transient cerebral ischemic attack, unspecified (principal); R79.89 Other specified abnormal findings of blood chemistry; E11.40 Type 2 diabetes mellitus with diabetic neuropathy, unspecified; I10 Essential (primary) hypertension; E11.9 Type 2 diabetes mellitus without complications; R05 Cough; Z79.4 Long term (current) use of insulin; K21.9 Gastro-esophageal reflux disease without esophagitis; F41.9 Anxiety disorder, unspecified; I25.2 Old myocardial infarction; R41.0 Disorientation, unspecified; Z79.82 Long term (current) use of aspirin; Z79.899 Other long term (current) drug therapy
CPT/HCPCS: 36000; 36415; 51702; 70450; 70496; 70498; 71010; 80053; 80061; 81000; 82962; 83721; 84484; 85025; 85027; 85652; 85730; 87086; 93005; 93041; 94640; 94760; 96360; 99285; J1650; J2405; A9270-GY

== ENCOUNTER 2023-12-29 03:33 | Emergency (ER) | payer MEDICARE ==
[2023-12-29 03:46] VITALS: TEMP 98.5
[2023-12-29] MEDS ORDERED: Lasix 40 MG/4 ML ONE (03:48)
[2023-12-29] MEDS ORDERED: Ntg 0.2MG/Ml in D5W GLASS*** 250 ML IV ONE (03:49)
[2023-12-29] MEDS: Lasix 40 MG/4 ML IV ONE (03:50)
--- NOTE | 2023-12-29 03:52 | ERPHSYRPT ---
- History of Present Illness Time Seen by Provider: 12/29/23 03:40 Source: patient Exam Limitations: no limitations Physician History: 73-year-old female end-stage renal disease history of CHF presents for emergency department for evaluation of shortness of breath. Them started today. Upon EMS arrival patient was found to be hypoxic and tachycardic. Patient slightly altered. No active chest pain. Symptoms are progressive. Symptoms are moderate in intensity. No specific worsening or improving factors. Due to high acuity of patient's presentation HPI limited. Of note patient reports she had a left upper extremity fistula placed approximately 2 days ago at [facility] by Dr. Gilmore her software asset management analyst is Dr. Castro Portions of this note were created with voice recognition technology. There may be grammatical, spelling, punctuation or sound alike errors Timing/Duration: today Severity: moderate Modifying Factors: Improves With: nothing Associated Symptoms: shortness of breath Allergies/Adverse Reactions: No Known Drug Allergies Allergy (Verified 12/29/23 03:47) Home Medications: Albuterol Sulfate [Albuterol Sulfate Hfa] 2 puff IH QID 02/04/14 [History] Calcium Carbonate/Vitamin D3 [Calcium 600 + Vit D Tablet] 1 tab PO BID 02/04/14 [History] Magnesium Oxide 400 mg [Mag-Ox 400] 400 mg PO BID 02/04/14 [History] Metformin HCl 1000 mg [Glucophage 1000 MG] 1,000 mg PO BID 02/04/14 [History] Metoprolol Tartrate 50 mg [Lopressor 50 MG] 50 mg PO BID 02/04/14 [History] Omeprazole 20 MG [Prilosec 20 mg] 20 mg PO DAILY 02/04/14 [History] Pravastatin Sodium 20 mg PO DAILY 02/04/14 [History] Amlodipine Besylate 5 mg [Norvasc 5 mg] 5 mg PO DAILY 04/06/16 [History] Lisinopril/Hydrochlorothiazide [Lisinopril-Hctz 20-12.5 mg Tab] 2 each PO DAILY 04/06/16 [History] Hydralazine HCl 10 mg PO TID 04/09/16 [History] Insulin Aspart [NovoLOG Insulin] 5 units SQ TIDWMEALS 02/12/17 [History] Insulin Detemir [Levemir] 25 units SQ QHS 02/12/17 [History] Loratadine 10 mg [Claritin 10 mg] 10 mg PO BID 02/12/17 [History] Hx Tetanus, Diphtheria Vaccination/Date Given: Yes Hx Influenza Vaccination/Date Given: Yes Hx Pneumococcal Vaccination/Date Given: No - Review of Systems Constitutional: No Symptoms, No Fever, No Chills Eyes: No Symptoms Ears, Nose, & Throat: No Symptoms Respiratory: No Symptoms, No Cough, No Dyspnea Cardiac: No Symptoms, No Chest Pain, No Edema, No Syncope Abdominal/Gastrointestinal: No Symptoms, No Abdominal Pain, No Nausea, No Vomiting, No Diarrhea Genitourinary Symptoms: No Symptoms, No Dysuria Musculoskeletal: No Symptoms, No Back Pain, No Neck Pain Skin: No Symptoms, No Rash Neurological: No Symptoms, No Dizziness, No Focal Weakness, No Sensory Changes Psychological: No Symptoms Endocrine: No Symptoms Hematologic/Lymphatic: No Symptoms Immunological/Allergic: No Symptoms All Other Systems: Reviewed and Negative - Past Medical History Pertinent Past Medical History: Yes Neurological History: No Pertinent History ENT History: No Pertinent History Cardiac History: Hypertension Respiratory History: No Pertinent History Endocrine Medical History: Diabetes Type II Musculoskeletal History: No Pertinent History GI Medical History: GERD History: No Pertinent History Psycho-Social History: Anxiety Female Reproductive Disorders: No Pertinent History - Past Surgical History Past Surgical History: Yes Neuro Surgical History: No Pertinent History Cardiac: Cardiac Catheterization Respiratory: No Pertinent History Gastrointestinal: No Pertinent History, Hernia Repair Genitourinary: No Pertinent History Musculoskeletal: No Pertinent History Female Surgical History: Tubal Ligation - Social History Smoking Status: Never smoker Exposure to second hand smoke: No Drug Use: none Patient Lives Alone: Yes - Nursing Vital Signs Nursing Vital Signs: Initial Vital Signs Pulse Rate 63 12/29/23 03:29 Blood Pressure 137/79 12/29/23 03:29 O2 Sat by Pulse Oximetry 99 12/29/23 03:29 - Physical Exam General Appearance: no apparent distress, alert Eye Exam: PERRL/EOMI, eyes nml inspection Ears, Nose, Throat Exam: normal ENT inspection, TMs normal, pharynx normal, moist mucous membranes Neck Exam: normal inspection, non-tender, supple, full range of motion Respiratory Exam: respiratory distress, diminished breath sounds, crackles/rales Cardiovascular Exam: regular rate/rhythm, normal heart sounds, normal peripheral pulses Gastrointestinal/Abdomen Exam: soft, normal bowel sounds, No tenderness, No mass Back Exam: normal inspection, normal range of motion, No CVA tenderness, No vertebral tenderness Extremity Exam: normal inspection, normal range of motion, pelvis stable Neurologic Exam: alert, oriented x 3, cooperative, normal mood/affect, sensation nml, No motor deficits Skin Exam: normal color, warm, dry, No rash Lymphatic Exam: No adenopathy SpO2 Interpretation: normal, hypoxic SpO2: 99 O2 Delivery: BiPap - Course Nursing assessment & vital signs reviewed: Yes EKG Interpreted by Me: RATE ([id number]), Sinus Tach, Left [place] Deviation, NORMAL INTERVALS, NORMAL QRS - Radiology Exams Chest X-ray Interpretation: Teleradiologist Report (Pulmonary edema, cardiomegaly, pleural effusion) Ordered Tests: Active Orders 24 hr Category Date Time Status Reservoir Caretaker STAT Care 12/29/23 03:39 Active EKG-ER Only STAT Care 12/29/23 03:39 Active Breaux [Catheter-[place] Breaux] STAT Care 12/29/23 05:00 Active IV Insertion STAT Care 12/29/23 03:39 Active Pulse Oximetry (ED) STAT Care 12/29/23 03:39 Active CHEST 1 VIEW (PORTABLE) Stat Exams 12/29/23 03:42 Completed ABG [ARTERIAL BLOOD GASES] Stat Lab 12/29/23 03:40 Completed ABG [ARTERIAL BLOOD GASES] Stat Lab 12/29/23 04:20 Completed BLOOD CULTURE Stat Lab 12/29/23 03:39 Received CBC W DIFF Stat Lab 12/29/23 04:45 Completed CMP Stat Lab 12/29/23 04:45 Completed CULTURE,URINE Stat Lab 12/29/23 05:06 Received Lactic Acid Stat Lab 12/29/23 03:40 Completed Lactic Acid Urgent Lab 12/29/23 04:20 Completed MAGNESIUM Stat Lab 12/29/23 04:45 Completed NT PRO BNPII Stat Lab 12/29/23 04:45 Completed TROPONIN Q4H Lab 12/29/23 04:45 Completed TROPONIN Q4H Lab 12/29/23 07:45 Ordered TROPONIN Q4H Lab 12/29/23 11:45 Ordered UA W/RFX UR CULTURE Stat Lab 12/29/23 05:06 Completed BiPap/CPAP STAT RT 12/29/23 03:39 Active Medication Summary Generic Name Dose Route Start Last Admin Trade Name Rashmi PRN Reason Stop Dose Admin Nitroglycerin/Dextrose 250 mls @ 1.5 mls/hr 12/29/23 03:42 12/29/23 03:54 Ntg 0.2mg/Ml In D5w Glass IV 01/28/24 03:41 5 mcg/min .Q24H PRN 1.5 mls/hr CHEST PAIN Administration Protocol 5 MCG/MIN Discontinued Medications Generic Name Dose Route Start Last Admin Trade Name Rashmi PRN Reason Stop Dose Admin Furosemide 40 mg 12/29/23 03:41 12/29/23 03:50 Furosemide 40 Mg/4 Ml Vial IV 12/29/23 03:42 40 mg STAT ONE Administration Furosemide Confirm 12/29/23 03:48 Furosemide 40 Mg/4 Ml Vial Administered 12/29/23 03:49 Dose 40 mg .ROUTE .STK-MED ONE Piperacillin Sod/Tazobactam 100 mls @ 200 mls/hr 12/29/23 05:53 12/29/23 06:27 Sod 2.25 gm/ Sodium Chloride IV 12/29/23 06:22 200 mls/hr STAT ONE Administration Lab/Rad Data: Laboratory Result Diagrams 12/29/23 04:45 12/29/23 04:45 Laboratory Results 12/29/23 12/29/23 12/29/23 Range/Units 05:06 04:45 04:45 WBC (3.98-10.04) x10^3/uL RBC (3.93-5.22) x10^6/uL Hgb (11.2-15.7) g/dL Hct (34.1-44.9) % MCV (79.4-94.8) fL MCH (25.6-32.2) pg MCHC (32.2-35.5) g/dL RDW (11.7-14.4) % Plt Count (182-369) x10^3/uL MPV (9.4-12.3) fL Gran % (34.0-71.1) % Immature Gran % (Auto) (0.001-0.429) % Nucleat RBC Rel Count (0.00-0.2) % Eos # (Auto) (0.04-0.36) x10^3/uL Immature Gran # (Auto) (0.001-0.031) x10^3u/L Absolute Lymphs (auto) (1.18-3.74) x10^3/uL Absolute Monos (auto) (0.24-0.86) x10^3/uL Absolute Nucleated RBC (0.00-0.012) x10^3u/L Lymphocytes % (19.3-51.7) % Monocytes % (4.7-12.5) % Eosinophils % (0.7-5.8) % Basophils % (0.1-1.2) % Absolute Granulocytes (1.56-6.13) x10^3/uL Basophils # (0.01-0.08) x10^3/uL Puncture Site pCO2 (35-45) mmHg pO2 (75-100) mmHg Base Excess (-2.0-2.0) O2 Saturation (94-100) g/dF ABG pH (7.35-7.45) ABG HCO3 (22-28) ABG O2 Sat (Measured) (95-100) % [place] Test A-a Gradient a/A Ratio Hemoglobin Carboxyhemoglobin (0.0-6.9) % THgb Methemoglobin (1.4-1.5) % Potassium (3.5-5.1) Temperature C POC O2 Flow Rate % Inspiratory BiPAP Expiratory BiPAP Sodium (135-145) mmol/L Chloride (98-107) mmol/L Carbon Dioxide (22-30) mmol/L Anion Gap (5-15) MEQ/L BUN (7-17) mg/dL Creatinine (0.52-1.04) mg/dL Estimated GFR ML/MIN Glucose (74-106) mg/dL Lactic Acid (0.4-2.0) Calcium (8.4-10.2) mg/dL Magnesium (1.6-2.3) mg/dL Total Bilirubin (0.2-1.3) mg/dL AST (14-36) U/L ALT (0-35) U/L Alkaline Phosphatase (38-126) U/L Troponin I (0.000-0.033) ng/mL NT-Pro-B Natriuret Pep (<300) pg/mL Serum Total Protein (6.3-8.2) g/dL Albumin (3.5-5.0) g/dL Urine Color Yellow (Yellow) Urine Appearance Clear (Clear) Urine pH 5.0 (4.6-8.0) Ur Specific [place] 1.010 (1.005-1.030) Urine Protein Trace A (Negative) Urine Glucose (UA) Negative (Negative) mg/dL Urine Ketones Negative (Negative) Urine Blood Negative (Negative) Urine Nitrite Negative (Negative) Urine Bilirubin Negative (Negative) Urine Urobilinogen 0.2 (0.2) mg/dL Ur Leukocyte Esterase Trace A (Negative) U Hyaline Cast (Auto) 3-5 A (0-2) /LPF Urine Microscopic RBC 0-2 (0-5) /HPF Urine Microscopic WBC 3-5 (0-5) /HPF Ur Epithelial Cells Rare (None Seen) /HPF Urine Bacteria None Seen (None Seen) /HPF Urine Culture Reflexed NO (NO) Influenza Type A Ag NEGATIVE (NEGATIVE) Influenza Type B Ag NEGATIVE (NEGATIVE) RSV (PCR) NEGATIVE (NEGATIVE) SARS-CoV-2 (PCR) NEGATIVE (NEGATIVE) ABO Group A Rh Factor POSITIVE Antibody Screen NEGATIVE (NEGATIVE) 12/29/23 12/29/23 12/29/23 Range/Units 04:45 04:45 04:45 WBC 23.5 H (3.98-10.04) x10^3/uL RBC 2.87 L (3.93-5.22) x10^6/uL Hgb 7.7 L (11.2-15.7) g/dL Hct 24.5 L (34.1-44.9) % MCV 85.4 (79.4-94.8) fL MCH 26.8 (25.6-32.2) pg MCHC 31.4 L (32.2-35.5) g/dL RDW 17.0 H (11.7-14.4) % Plt Count 352 (182-369) x10^3/uL MPV 10.4 (9.4-12.3) fL Gran % 84.9 H (34.0-71.1) % Immature Gran % (Auto) 3.1 H (0.001-0.429) % Nucleat RBC Rel Count 0.2 (0.00-0.2) % Eos # (Auto) 0.04 (0.04-0.36) x10^3/uL Immature Gran # (Auto) 0.74 H (0.001-0.031) x10^3u/L Absolute Lymphs (auto) 1.44 (1.18-3.74) x10^3/uL Absolute Monos (auto) 1.24 H (0.24-0.86) x10^3/uL Absolute Nucleated RBC 0.04 H (0.00-0.012) x10^3u/L Lymphocytes % 6.1 L (19.3-51.7) % Monocytes % 5.3 (4.7-12.5) % Eosinophils % 0.2 L (0.7-5.8) % Basophils % 0.4 (0.1-1.2) % Absolute Granulocytes 19.96 H (1.56-6.13) x10^3/uL Basophils # 0.09 H (0.01-0.08) x10^3/uL Puncture Site pCO2 (35-45) mmHg pO2 (75-100) mmHg Base Excess (-2.0-2.0) O2 Saturation (94-100) g/dF ABG pH (7.35-7.45) ABG HCO3 (22-28) ABG O2 Sat (Measured) (95-100) % [place] Test A-a Gradient a/A Ratio Hemoglobin Carboxyhemoglobin (0.0-6.9) % THgb Methemoglobin (1.4-1.5) % Potassium 5.0 (3.5-5.1) Temperature C POC O2 Flow Rate % Inspiratory BiPAP Expiratory BiPAP Sodium 132 L (135-145) mmol/L Chloride 100 (98-107) mmol/L Carbon Dioxide 14 L* (22-30) mmol/L Anion Gap 23.1 H (5-15) MEQ/L BUN 79 H (7-17) mg/dL Creatinine 4.69 H (0.52-1.04) mg/dL Estimated GFR 9.2 ML/MIN Glucose 259 H (74-106) mg/dL Lactic Acid (0.4-2.0) Calcium 8.9 (8.4-10.2) mg/dL Magnesium 3.1 H (1.6-2.3) mg/dL Total Bilirubin 0.40 (0.2-1.3) mg/dL AST 39 H (14-36) U/L ALT 36 H (0-35) U/L Alkaline Phosphatase 61 (38-126) U/L Troponin I 0.060 H* (0.000-0.033) ng/mL NT-Pro-B Natriuret Pep 7960 (<300) pg/mL Serum Total Protein 7.4 (6.3-8.2) g/dL Albumin 4.0 (3.5-5.0) g/dL Urine Color (Yellow) Urine Appearance (Clear) Urine pH (4.6-8.0) Ur Specific [place] (1.005-1.030) Urine Protein (Negative) Urine Glucose (UA) (Negative) mg/dL Urine Ketones (Negative) Urine Blood (Negative) Urine Nitrite (Negative) Urine Bilirubin (Negative) Urine Urobilinogen (0.2) mg/dL Ur Leukocyte Esterase (Negative) U Hyaline Cast (Auto) (0-2) /LPF Urine Microscopic RBC (0-5) /HPF Urine Microscopic WBC (0-5) /HPF Ur Epithelial Cells (None Seen) /HPF Urine Bacteria (None Seen) /HPF Urine Culture Reflexed (NO) Influenza Type A Ag (NEGATIVE) Influenza Type B Ag (NEGATIVE) RSV (PCR) (NEGATIVE) SARS-CoV-2 (PCR) (NEGATIVE) ABO Group Rh Factor Antibody Screen (NEGATIVE) 12/29/23 12/29/23 12/29/23 Range/Units 04:20 04:20 03:40 WBC (3.98-10.04) x10^3/uL RBC (3.93-5.22) x10^6/uL Hgb (11.2-15.7) g/dL Hct (34.1-44.9) % MCV (79.4-94.8) fL MCH (25.6-32.2) pg MCHC (32.2-35.5) g/dL RDW (11.7-14.4) % Plt Count (182-369) x10^3/uL MPV (9.4-12.3) fL Gran % (34.0-71.1) % Immature Gran % (Auto) (0.001-0.429) % Nucleat RBC Rel Count (0.00-0.2) % Eos # (Auto) (0.04-0.36) x10^3/uL Immature Gran # (Auto) (0.001-0.031) x10^3u/L Absolute Lymphs (auto) (1.18-3.74) x10^3/uL Absolute Monos (auto) (0.24-0.86) x10^3/uL Absolute Nucleated RBC (0.00-0.012) x10^3u/L Lymphocytes % (19.3-51.7) % Monocytes % (4.7-12.5) % Eosinophils % (0.7-5.8) % Basophils % (0.1-1.2) % Absolute Granulocytes (1.56-6.13) x10^3/uL Basophils # (0.01-0.08) x10^3/uL Puncture Site RIGHT RADIAL pCO2 34 L (35-45) mmHg pO2 102 H (75-100) mmHg Base Excess -6.8 L (-2.0-2.0) O2 Saturation 98.0 (94-100) g/dF ABG pH 7.34 L (7.35-7.45) ABG HCO3 18.3 L (22-28) ABG O2 Sat (Measured) 99.9 (95-100) % [place] Test YES A-a Gradient 283 a/A Ratio 0.26 Hemoglobin 8.0 Carboxyhemoglobin 1.9 (0.0-6.9) % THgb Methemoglobin 0.1 L (1.4-1.5) % Potassium 5.3 H (3.5-5.1) Temperature 37.0 C POC O2 Flow Rate 60 % Inspiratory BiPAP 16 Expiratory BiPAP 8 Sodium (135-145) mmol/L Chloride (98-107) mmol/L Carbon Dioxide (22-30) mmol/L Anion Gap (5-15) MEQ/L BUN (7-17) mg/dL Creatinine (0.52-1.04) mg/dL Estimated GFR ML/MIN Glucose (74-106) mg/dL Lactic Acid 3.3 H 4.6 H (0.4-2.0) Calcium (8.4-10.2) mg/dL Magnesium (1.6-2.3) mg/dL Total Bilirubin (0.2-1.3) mg/dL AST (14-36) U/L ALT (0-35) U/L Alkaline Phosphatase (38-126) U/L Troponin I (0.000-0.033) ng/mL NT-Pro-B Natriuret Pep (<300) pg/mL Serum Total Protein (6.3-8.2) g/dL Albumin (3.5-5.0) g/dL Urine Color (Yellow) Urine Appearance (Clear) Urine pH (4.6-8.0) Ur Specific [place] (1.005-1.030) Urine Protein (Negative) Urine Glucose (UA) (Negative) mg/dL Urine Ketones (Negative) Urine Blood (Negative) Urine Nitrite (Negative) Urine Bilirubin (Negative) Urine Urobilinogen (0.2) mg/dL Ur Leukocyte Esterase (Negative) U Hyaline Cast (Auto) (0-2) /LPF Urine Microscopic RBC (0-5) /HPF Urine Microscopic WBC (0-5) /HPF Ur Epithelial Cells (None Seen) /HPF Urine Bacteria (None Seen) /HPF Urine Culture Reflexed (NO) Influenza Type A Ag (NEGATIVE) Influenza Type B Ag (NEGATIVE) RSV (PCR) (NEGATIVE) SARS-CoV-2 (PCR) (NEGATIVE) ABO Group Rh Factor Antibody Screen (NEGATIVE) 12/29/23 Range/Units 03:40 WBC (3.98-10.04) x10^3/uL RBC (3.93-5.22) x10^6/uL Hgb (11.2-15.7) g/dL Hct (34.1-44.9) % MCV (79.4-94.8) fL MCH (25.6-32.2) pg MCHC (32.2-35.5) g/dL RDW (11.7-14.4) % Plt Count (182-369) x10^3/uL MPV (9.4-12.3) fL Gran % (34.0-71.1) % Immature Gran % (Auto) (0.001-0.429) % Nucleat RBC Rel Count (0.00-0.2) % Eos # (Auto) (0.04-0.36) x10^3/uL Immature Gran # (Auto) (0.001-0.031) x10^3u/L Absolute Lymphs (auto) (1.18-3.74) x10^3/uL Absolute Monos (auto) (0.24-0.86) x10^3/uL Absolute Nucleated RBC (0.00-0.012) x10^3u/L Lymphocytes % (19.3-51.7) % Monocytes % (4.7-12.5) % Eosinophils % (0.7-5.8) % Basophils % (0.1-1.2) % Absolute Granulocytes (1.56-6.13) x10^3/uL Basophils # (0.01-0.08) x10^3/uL Puncture Site RIGHT RADIAL pCO2 61 H* (35-45) mmHg pO2 196 H* (75-100) mmHg Base Excess -11.0 L (-2.0-2.0) O2 Saturation 97.7 (94-100) g/dF ABG pH 7.09 L* (7.35-7.45) ABG HCO3 18.5 L (22-28) ABG O2 Sat (Measured) 100.0 (95-100) % [place] Test YES A-a Gradient 441 a/A Ratio 0.31 Hemoglobin 8.4 Carboxyhemoglobin 1.7 (0.0-6.9) % THgb Methemoglobin 0.7 L (1.4-1.5) % Potassium 5.3 H (3.5-5.1) Temperature 37.0 C POC O2 Flow Rate 100 % Inspiratory BiPAP Expiratory BiPAP Sodium (135-145) mmol/L Chloride (98-107) mmol/L Carbon Dioxide (22-30) mmol/L Anion Gap (5-15) MEQ/L BUN (7-17) mg/dL Creatinine (0.52-1.04) mg/dL Estimated GFR ML/MIN Glucose (74-106) mg/dL Lactic Acid (0.4-2.0) Calcium (8.4-10.2) mg/dL Magnesium (1.6-2.3) mg/dL Total Bilirubin (0.2-1.3) mg/dL AST (14-36) U/L ALT (0-35) U/L Alkaline Phosphatase (38-126) U/L Troponin I (0.000-0.033) ng/mL NT-Pro-B Natriuret Pep (<300) pg/mL Serum Total Protein (6.3-8.2) g/dL Albumin (3.5-5.0) g/dL Urine Color (Yellow) Urine Appearance (Clear) Urine pH (4.6-8.0) Ur Specific [place] (1.005-1.030) Urine Protein (Negative) Urine Glucose (UA) (Negative) mg/dL Urine Ketones (Negative) Urine Blood (Negative) Urine Nitrite (Negative) Urine Bilirubin (Negative) Urine Urobilinogen (0.2) mg/dL Ur Leukocyte Esterase (Negative) U Hyaline Cast (Auto) (0-2) /LPF Urine Microscopic RBC (0-5) /HPF Urine Microscopic WBC (0-5) /HPF Ur Epithelial Cells (None Seen) /HPF Urine Bacteria (None Seen) /HPF Urine Culture Reflexed (NO) Influenza Type A Ag (NEGATIVE) Influenza Type B Ag (NEGATIVE) RSV (PCR) (NEGATIVE) SARS-CoV-2 (PCR) (NEGATIVE) ABO Group Rh Factor Antibody Screen (NEGATIVE) - Progress Progress: improved Progress Note: 73-year-old female history of diabetes, end-stage renal disease, left upper extremity fistula placed 2 days ago at [facility] by Dr. Gilmore presents to our ED in respiratory distress. Physical exam reveals bilateral lower extremity pitting edema. Lung exam reveals crackles. Chest x-ray reveals cardiomegaly with pulmonary edema. BNP elevated at 7900. Lasix administered. Nitro drip initiated. BiPAP initiated. Laboratory workup reveals a white count of 23. Blood cultures obtained antibiotics initiated. Hemoglobin 7.7. Type and screen ordered. Upon arrival to our ED ABG suggested patient was profoundly acidotic with a pH of 7.0, lactic acid 4.7. Patient treated. pH improved to 7.37. Lactic acid improved to 3.3. Breaux catheter placed. No due to UTI observed. Patient's software asset management analyst is . In light of patient's renal function, anemia and the possibility of requiring acute dialysis we decided to transfer uri bolanos to higher level of care. We contacted [facility]. I spoke to ER physician Dr. Mueller who accepted transfer to [facility]. Plan of care discussed with patient. Patient agrees to transfer to [facility] for further evaluation and treatment. Portions of this note were created with voice recognition technology. There may be grammatical, spelling, punctuation or sound alike errors Complexity of problem addressed is moderate acute complicated. Critical care time greater than 194 minutes. Immediate intervention indicated to prevent further deterioration.. Complex of data reviewed and analyzed is extensive. Test ordered chest reviewed results analyzed and correlated clinically with history and physical exam. Management discussed with ER physician Dr. Mueller at [facility] who accepts transfer. Transfer accepted by Dr. Mueller at 5:42 AM. Risk of complication and or risk of morbidity/mortality of patient management is high. Patient requires transfer to higher level of care. Vital stable. Time spent to transfer patient is approximately 20 minutes. Plan of care established for shared decision making. No social determinants of health present to impede follow-up. Portions of this note were created with voice recognition technology. There may be grammatical, spelling, punctuation or sound alike errors 12/29/23 06:03 It is currently the change of shift. Patient will be handed over to Dr. Cline to oversee the transfer that is expected to occur at 8 AM this morning. Counseled pt/family regarding: lab results, diagnosis, need for follow-up, rad results - Departure Departure Disposition: Transfer Clinical Impression: Respiratory distress, Congestive heart failure, Pulmonary edema, Pedal edema, Hypoxia, Metabolic acidosis, Lactic acidosis, Left bundle branch block, Leukocytosis, Elevated brain natriuretic peptide (BNP) level, Pleural effusion, Cardiomegaly, Elevated troponin, Normocytic anemia Condition: Stable Critical Care Time: Yes Critical Care Time(excluding separately billable procedures): Critical > 194 mins Referrals: TYRA LAWLER NP [Primary Care Provider] - Follow up/PCP as directed Instructions: Heart Failure
[2023-12-29 03:54] LABS: A-aADO2 441; ABG HEMOGLOBIN 8.4; ABG POTASSIUM 5.3 (3.5-5.1); ARTERIAL BLOOD GAS FIO2 100 %; ARTERIAL BLOOD GAS PO2 196 mmHg (75-100); CARBOXYHEMOGLOBIN 1.7 % THgb (0.0-6.9); HCO3- 18.5 (22-28); HGB O2 SAT 97.7 g/dF (94-100); Methhemoglobin 0.7 % (1.4-1.5); paO2 pAO1 0.31
[2023-12-29] MEDS: Ntg 0.2MG/Ml in D5W GLASS*** 250 ML IV PRN (03:54)
[2023-12-29 03:55] LABS: ABG SITE RIGHT RADIAL; ALLEN TEST OK? YES; ARTERIAL BLOOD GAS PCO2 61 mmHg (35-45); ARTERIAL BLOOD GAS pH 7.09 (7.35-7.45)
[2023-12-29 04:29] LABS: A-aADO2 283; ABG POTASSIUM 5.3 (3.5-5.1); ARTERIAL BLD GAS O2 SATURATION 99.9 % (95-100); ARTERIAL BLOOD GAS BASE EXCESS -6.8 (-2.0-2.0); ARTERIAL BLOOD GAS FIO2 60 %; ARTERIAL BLOOD GAS PCO2 34 mmHg (35-45); ARTERIAL BLOOD GAS PO2 102 mmHg (75-100); ARTERIAL BLOOD GAS pH 7.34 (7.35-7.45); CARBOXYHEMOGLOBIN 1.9 % THgb (0.0-6.9); HCO3- 18.3 (22-28); Methhemoglobin 0.1 % (1.4-1.5); paO2 pAO1 0.26
--- NOTE | 2023-12-29 04:29 | XRAY ---
CLINICAL HISTORY: hypoxia COMPARISON: Previous study dated 02/11/2017. TECHNIQUE: X-ray image of the chest is obtained in AP portable projection. FINDINGS: Pulmonary Parenchyma: Bilateral diffuse lung hazy opacifications, more at the right side, There are bilateral septal lines, both peripheral(beatriz b) and central (beatriz a), denoting pulmonary edema. Suspected left pleural effusion. The right CPA is clear. Heart and Mediastinum: There is moderate cardiomegaly. No mediastinal widening or masses. No hilar or mediastinal lymphadenopathy. Bony Thorax: There is an artificial device (unknown). Suspected T3 right transverse process fracture, for clinical correlation and further evaluation as needed. Soft Tissues: Soft tissues overlying the chest wall are unremarkable. IMPRESSION: 1. There is moderate cardiomegaly, (Mild increase since last study). 2. There is bilateral lung hazy infiltration, more at right side, with multiple septal lines, suggestive of acute pulmonary edema. (New findings). 3. Left pleural effusion is suspected. (New findings). 4. Suspected T3 right transverse process fracture, for clinical correlation and further evaluation as needed. (New findings). Electronically Signed by: Jessika Cheney MD. (12/29/2023 04:24:26 EST)
[2023-12-29 04:30] LABS: ABG SITE RIGHT RADIAL; ALLEN TEST OK? YES; BIPAP(E) 8; BIPAP(I) 16
[2023-12-29 04:55] LABS: Absolute Neutrophil Ct (ANC) 19.96 x10^3/uL (1.56-6.13); BASOPHIL % 0.4 % (0.1-1.2); Basophil (Absolute #) 0.09 x10^3/uL (0.01-0.08); Eosinophil % 0.2 % (0.7-5.8); Eosinophil (Absolute #) 0.04 x10^3/uL (0.04-0.36); Hematocrit 24.5 % (34.1-44.9); Hemoglobin 7.7 g/dL (11.2-15.7); IMMATURE GRAN # 0.74 x10^3u/L (0.001-0.031); IMMATURE GRAN % 3.1 % (0.001-0.429); Lymphocyte (Absolute #) 1.44 x10^3/uL (1.18-3.74); Lymphocytes % 6.1 % (19.3-51.7); Mean Cell Volume 85.4 fL (79.4-94.8); Mean Corpuscular Hemoglobin 26.8 pg (25.6-32.2); Mean Corpuscular Hgb Concent. 31.4 g/dL (32.2-35.5); Mean Platelet Volume 10.4 fL (9.4-12.3); Monocyte (Absolute #) 1.24 x10^3/uL (0.24-0.86); Monocytes % 5.3 % (4.7-12.5); NUCLEATED RBC # 0.04 x10^3u/L (0.00-0.012); NUCLEATED RBC % 0.2 % (0.00-0.2); Neutrophil % 84.9 % (34.0-71.1); Platelet Count 352 x10^3/uL (182-369); Red Blood Count 2.87 x10^6/uL (3.93-5.22); White Blood Count 23.5 x10^3/uL (3.98-10.04)
[2023-12-29 05:04] VITALS: RESP 38; O2SAT 99
[2023-12-29 05:15] LABS: Appearance Clear (Clear); Bacteria None Seen /HPF (None Seen); Bilirubin Negative (Negative); Blood Negative (Negative); Epithelial Cells Rare /HPF (None Seen); Glucose, Urine Negative (Negative); Ketones Negative (Negative); Leukocyte Esterase Trace (Negative); Nitrite Negative (Negative); Protein,Urine Dip Trace (Negative); RBC 0-2 /HPF (0-5); Urobilinogen 0.2 mg/dL (0.2)
[2023-12-29 05:16] LABS: ANION GAP 23.1 MEQ/L (5-15); BILIRUBIN,TOTAL 0.4 mg/dL (0.2-1.3); Calcium 8.9 mg/dL (8.4-10.2); Creatinine 1 4.69 mg/dL (0.52-1.04); EST GLOMERULAR FILTRATION RATE 9.2 ML/MIN; MAGNESIUM 3.1 mg/dL (1.6-2.3); Total Protein 7.4 g/dL (6.3-8.2)
[2023-12-29 05:32] LABS: INFLUENZA A NEGATIVE (NEGATIVE); INFLUENZA B NEGATIVE (NEGATIVE); RESPIRATORY SYNCTIAL VIRUS NEGATIVE (NEGATIVE); SARS-CoV-2 Xpert Express NEGATIVE (NEGATIVE)
[2023-12-29 05:53] LABS: ABO TYPING A; RH TYPING POSITIVE
[2023-12-29 05:54] LABS: Antibody Screen NEGATIVE (NEGATIVE)
[2023-12-29] MEDS: Piperacillin/Tazobactam 2.25 GM 2.25 GM in Sodium Chloride 100ML MINI-BAG PLUS 100 ML IV ONE (06:27)
[2023-12-29 08:18] VITALS: BP 121/76; PULSE 91
== END 2023-12-29 08:30 | disposition short-term general hospital (02) ==
LOC: ED 03:33
DX: R06.03 Acute respiratory distress (principal); I50.9 Heart failure, unspecified; E87.20 Acidosis, unspecified; Z79.899 Other long term (current) drug therapy; E11.9 Type 2 diabetes mellitus without complications; R60.9 Edema, unspecified; I51.7 Cardiomegaly; D64.9 Anemia, unspecified; R79.89 Other specified abnormal findings of blood chemistry; I44.7 Left bundle-branch block, unspecified; D72.829 Elevated white blood cell count, unspecified; I10 Essential (primary) hypertension
CPT/HCPCS: 0241U; 36000; 36415; 36600; 51702; 71045; 80053; 81001; 82375; 82803; 83605; 83735; 83880; 84484; 85025; 86850; 86900; 86901; 87040; 87086; 93005; 93041; 94002; 94760; 96365; 96374; 99291; 99292; 99285; J1940; J2543

== ENCOUNTER 2024-03-11 04:53 | Emergency (ER) | payer MEDICARE ==
[2024-03-11] MEDS ORDERED: D50W 50 ml Abboject IV ONE (04:57)
--- NOTE | 2024-03-11 05:01 | ERPHSYRPT ---
- History of Present Illness Source: patient, EMS Exam Limitations: clinical condition Timing/Duration: today Activities at Onset: rest Severity of Dyspnea-Max: severe Severity of Dyspnea-Current: severe Possible Cause: occasional episodes Modifying Factors: Improves With: nothing Associated Symptoms: constant, edema, fever, loss of appetite, wheezing, ankle swelling, chills, No cough, No chest pain/discomfort, No hemoptysis, No calf pain, No heaviness, No heart racing, No painful breathing, No productive cough Hx Tetanus, Diphtheria Vaccination/Date Given: Yes Hx Influenza Vaccination/Date Given: Yes Hx Pneumococcal Vaccination/Date Given: No <CARMEN BOWIE - Last Filed: 03/11/24 06:27> <GILL CACERES - Last Filed: 03/11/24 08:37> - History of Present Illness Time Seen by Provider: 03/11/24 05:00 Physician History: The patient, with heart and renal failure, presents with shortness of breath and gastrointestinal symptoms. She became ill on Tuesday with gastrointestinal symptoms, including inability to eat, vomiting throughout the day, and diarrhea. These symptoms preceded the onset of her shortness of breath. She experiences shortness of breath that began this morning. No cough or chest pain is present, but she notes a slight fever and chills. She also mentions some swelling in her legs. Her medical history is significant for heart failure, and she is currently on dialysis, attending sessions on Tuesday, Tuesday, and Tuesday. She confirms that her last dialysis session on Tuesday was as usual, with no changes in the amount of fluid removed. Glucose 30 in ambulance, unable to obtain IV access, Glucose tablet given. Glucose 33 in ED (CARMEN BOWIE) Allergies/Adverse Reactions: No Known Drug Allergies Allergy (Verified 12/29/23 03:47) Home Medications: Albuterol Sulfate [Albuterol Sulfate Hfa] 2 puff IH QID 02/04/14 [History] Calcium Carbonate/Vitamin D3 [Calcium 600 + Vit D Tablet] 1 tab PO BID 02/04/14 [History] Magnesium Oxide 400 mg [Mag-Ox 400] 400 mg PO BID 02/04/14 [History] Metformin HCl 1000 mg [Glucophage 1000 MG] 1,000 mg PO BID 02/04/14 [History] Metoprolol Tartrate 50 mg [Lopressor 50 MG] 50 mg PO BID 02/04/14 [History] Omeprazole 20 MG [Prilosec 20 mg] 20 mg PO DAILY 02/04/14 [History] Pravastatin Sodium 20 mg PO DAILY 02/04/14 [History] Amlodipine Besylate 5 mg [Norvasc 5 mg] 5 mg PO DAILY 04/06/16 [History] Lisinopril/Hydrochlorothiazide [Lisinopril-Hctz 20-12.5 mg Tab] 2 each PO DAILY 04/06/16 [History] Hydralazine HCl 10 mg PO TID 04/09/16 [History] Insulin Aspart [NovoLOG Insulin] 5 units SQ TIDWMEALS 02/12/17 [History] Insulin Detemir [Levemir] 25 units SQ QHS 02/12/17 [History] Loratadine 10 mg [Claritin 10 mg] 10 mg PO BID 02/12/17 [History] Travel Risk - Emerging Infectious Disease Are you exhibiting symptoms associated with any current EIDs: Yes Symptoms: Shortness of Breath <CARMEN BOWIE - Last Filed: 03/11/24 06:27> - Review of Systems All Other Systems: Reviewed and Negative <CARMEN BOWIE - Last Filed: 03/11/24 06:27> - Past Medical History Pertinent Past Medical History: Yes Neurological History: No Pertinent History ENT History: No Pertinent History Cardiac History: Hypertension Respiratory History: No Pertinent History Endocrine Medical History: Diabetes Type II Musculoskeletal History: No Pertinent History GI Medical History: GERD History: No Pertinent History Psycho-Social History: Anxiety Female Reproductive Disorders: No Pertinent History Other Medical History: recalled from previous medical record - Past Surgical History Past Surgical History: Yes Neuro Surgical History: No Pertinent History Cardiac: Cardiac Catheterization Respiratory: No Pertinent History Gastrointestinal: No Pertinent History, Hernia Repair Genitourinary: No Pertinent History Musculoskeletal: No Pertinent History Female Surgical History: Tubal Ligation Other Surgical History: recalled from previous medical record - Social History Smoking Status: Never smoker Exposure to second hand smoke: No Drug Use: none Patient Lives Alone: Yes - Social Determinants of Health Will the patient participate in the screening: Unable to obtain <CARMEN BOWIE - Last Filed: 03/11/24 06:27> - Physical Exam General Appearance: moderate distress, obese Eye Exam: eyes nml inspection Ears, Nose, Throat Exam: hearing decreased Neck Exam: normal inspection, supple, full range of motion Respiratory Exam: respiratory distress, airway intact, diminished breath sounds, accessory muscle use Cardiovascular/Chest Exam: normal heart sounds, regular rate/rhythm, edema (trace pitting b/l LE) Abdominal/Gastrointestinal Exam: soft, No tenderness, No distention, No mass, No guarding, No rebound Neurologic Exam: alert, oriented x 3, cooperative Skin Exam: dry, pale, No rash SpO2 Interpretation: hypoxic O2 Delivery: Nasal Cannula <CARMEN BOWIE - Last Filed: 03/11/24 06:27> - Nursing Vital Signs Nursing Vital Signs: Initial Vital Signs Temperature 96.4 F 03/11/24 05:01 Pulse Rate 89 03/11/24 05:01 Respiratory Rate 30 H 03/11/24 05:01 Blood Pressure 133/62 03/11/24 05:01 O2 Sat by Pulse Oximetry 98 03/11/24 05:01 Pain Scale Pain Intensity 7 - Course Nursing assessment & vital signs reviewed: Yes EKG Interpreted by Me: RATE (91), Sinus Rhythm, NORMAL AXIS, prolonged QT interval (QTc 567), Left Bundle Branch Block, NORMAL ST-T <CARMEN BOWIE - Last Filed: 03/11/24 06:27> Ordered Tests: Active Orders 24 hr Category Date Time Status EKG-ER Only STAT Care 03/11/24 05:00 Active IV Insertion STAT Care 03/11/24 05:00 Active CHEST 1 VIEW (PORTABLE) Stat Exams 03/11/24 05:02 Taken CHEST 1 VIEW (PORTABLE) Stat Exams 03/11/24 08:19 Taken CHEST WITHOUT CONTRAST [CT] Stat Exams 03/11/24 05:37 Completed ARTERIAL BLOOD GASES Stat Lab 03/11/24 05:44 Completed CBC W DIFF Stat Lab 03/11/24 05:55 Completed CMP Stat Lab 03/11/24 05:55 Completed D-DIMER QUANTITATIVE Stat Lab 03/11/24 05:55 Completed LIPASE Stat Lab 03/11/24 05:55 Completed Lactic Acid Stat Lab 03/11/24 05:30 Completed Lactic Acid Stat Lab 03/11/24 07:42 Received MAGNESIUM Stat Lab 03/11/24 05:55 Completed Manual Differential NC Stat Lab 03/11/24 05:55 Completed NT PRO BNPII Stat Lab 03/11/24 05:55 Completed PHOSPHOROUS Stat Lab 03/11/24 05:55 Completed POCT GLUCOSE Stat Lab 03/11/24 07:15 Completed PROCALCITONIN Stat Lab 03/11/24 05:55 Completed TROPONIN Q4H Lab 03/11/24 05:55 Completed TROPONIN Q4H Lab 03/11/24 09:15 Ordered TROPONIN Q4H Lab 03/11/24 13:15 Ordered UA W/RFX UR CULTURE Stat Lab 03/11/24 06:58 Ordered Respiratory Therapy Assessment DAILY RT 03/11/24 05:50 Active Medication Summary Generic Name Dose Route Start Last Admin Trade Name Freq PRN Reason Stop Dose Admin Vancomycin HCl 2 gm in 400 mls @ 133.333 mls/hr 03/11/24 05:36 03/11/24 06:42 Vancomycin 2 Gram/400 Ml Bag IV 03/11/24 08:35 133 ml/hr STAT ONE 133 mls/hr Administration Norepinephrine/Dextrose 8 mg in 250 mls @ 15 mls/hr 03/11/24 07:32 Norepinephrine 8 Mg/250 Ml-D5w IV 04/10/24 07:31 .[id number] PRN HYPOTENSION Protocol 8 MCG/MIN Discontinued Medications Generic Name Dose Route Start Last Admin Trade Name Frealvaro PRN Reason Stop Dose Admin Albuterol/Ipratropium 3 ml 03/11/24 05:00 03/11/24 05:30 Ipratropium/Albuterol Sulfate 3 Ml Ampul.Neb IH 03/11/24 05:01 3 ml STAT ONE Administration Albuterol/Ipratropium Confirm 03/11/24 05:13 Ipratropium/Albuterol Sulfate 3 Ml Ampul.Neb Administered 03/11/24 05:14 Dose 3 ml IH .STK-MED ONE Methylprednisolone Sodium 0 mg 03/11/24 05:00 03/11/24 06:06 Succinate 125 mg/ Sterile IV 03/11/24 05:01 125 mg Water 2 ml STAT ONE Administration Dextrose Confirm 03/11/24 04:57 Dextrose 50%-Water 50 Ml Abboject Administered 03/11/24 04:58 Dose 50 ml IV .STK-MED ONE Dextrose 50 ml 03/11/24 06:47 03/11/24 05:25 Dextrose 50%-Water 50 Ml Abboject IV 03/11/24 06:48 50 ml STAT ONE Administration Furosemide 40 mg 03/11/24 05:00 03/11/24 06:51 Furosemide 40 Mg/4 Ml Vial IV 03/11/24 05:01 Not Given STAT ONE Furosemide Confirm 03/11/24 06:03 Furosemide 40 Mg/4 Ml Vial Administered 03/11/24 06:04 Dose 40 mg .ROUTE .STK-MED ONE Glucagon 1 mg 03/11/24 05:08 03/11/24 05:14 Glucagon 1 Mg/Vial Vial IM 03/11/24 05:09 1 mg STAT ONE Administration Glucagon Confirm 03/11/24 05:10 Glucagon 1 Mg/Vial Vial Administered 03/11/24 05:11 Dose 1 mg .ROUTE .STK-MED ONE Glucose Confirm 03/11/24 05:10 Dextrose 15 Gm Gel Administered 03/11/24 05:11 Dose 15 gm PO .STK-MED ONE Sodium Chloride 1,000 mls @ 999 mls/hr 03/11/24 05:00 03/11/24 06:08 Sodium Chloride 0.9% 1000 Ml IV 03/11/24 06:00 999 mls/hr .Q1H1M STA Administration Piperacillin Sod/Tazobactam 100 mls @ 200 mls/hr 03/11/24 05:37 Sod 3.375 gm/ Sodium Chloride IV 03/11/24 06:06 STAT ONE Sodium Chloride Confirm 03/11/24 06:03 Sodium Chloride 0.9% 1000 Ml Administered 03/11/24 06:04 Dose 1,000 mls @ ud .ROUTE .STK-MED ONE Vancomycin HCl Confirm 03/11/24 06:41 Vancomycin 2 Gram/400 Ml Bag Administered 03/11/24 06:42 Dose 2 gm in 400 mls @ ud IV .STK-MED ONE Sodium Chloride 1,000 mls @ 999 mls/hr 03/11/24 07:26 03/11/24 07:29 Sodium Chloride 0.9% 1000 Ml IV 03/11/24 08:26 999 mls/hr .Q1H1M STA Administration Sodium Chloride Confirm 03/11/24 07:27 Sodium Chloride 0.9% 1000 Ml Administered 03/11/24 07:28 Dose 1,000 mls @ ud .ROUTE .STK-MED ONE Sodium Chloride Confirm 03/11/24 08:17 Sodium Chloride 0.9% 1000 Ml Administered 03/11/24 08:18 Dose 1,000 mls @ ud .ROUTE .STK-MED ONE Lorazepam Confirm 03/11/24 08:08 Lorazepam 2 Mg/1 Ml 2 Mg Vial Administered 03/11/24 08:09 Dose 2 mg .ROUTE .STK-MED ONE Methylprednisolone Sodium Succinate Confirm 03/11/24 06:03 Methylprednis Sod Succ 125 Mg/2 Ml Vial Administered 03/11/24 06:04 Dose 125 mg .ROUTE .STK-MED ONE Morphine Sulfate 2 mg 03/11/24 06:07 03/11/24 06:15 Morphine Sulfate 2 Mg/Ml Inj IV 03/11/24 06:08 2 mg STAT ONE Administration Morphine Sulfate Confirm 03/11/24 06:13 Morphine Sulfate 2 Mg/Ml Inj Administered 03/11/24 06:14 Dose 2 mg .ROUTE .STK-MED ONE Sodium Bicarbonate 200 meq 03/11/24 06:04 03/11/24 06:17 Sodium Bicarbonate 1 Meq/Ml 50ml Vial IV 03/11/24 06:05 200 meq STAT ONE Administration Sodium Bicarbonate Confirm 03/11/24 06:14 Sodium Bicarbonate 1 Meq/Ml 50ml Vial Administered 03/11/24 06:15 Dose 200 meq .ROUTE .STK-MED ONE Sterile Water Confirm 03/11/24 05:10 Water For Injection,Sterile 10 Ml Vial Administered 03/11/24 05:11 Dose 10 ml IJ .STK-MED ONE Sterile Water Confirm 03/11/24 06:03 Water For Injection,Sterile 10 Ml Vial Administered 03/11/24 06:04 Dose 10 ml IJ .STK-MED ONE Lab/Rad Data: Laboratory Result Diagrams 03/11/24 05:55 03/11/24 05:55 Laboratory Results 03/11/24 03/11/24 03/11/24 Range/Units 07:15 05:55 05:55 WBC (3.98-10.04) x10^3/uL RBC (3.93-5.22) x10^6/uL Hgb (11.2-15.7) g/dL Hct (34.1-44.9) % MCV (79.4-94.8) fL MCH (25.6-32.2) pg MCHC (32.2-35.5) g/dL RDW (11.7-14.4) % Plt Count (182-369) x10^3/uL MPV (9.4-12.3) fL Segmented Neutrophils (34.0-71.1) % Band Neutrophils (0.0-2.0) % Lymphocytes (Manual) (19.3-51.7) % Monocytes (Manual) (4.7-12.5) % Hypochromia Platelet Estimate (NORMAL) RBC Morphology Anisocytosis Ovalocytes D-Dimer (0.0-0.50) mg/L Puncture Site pCO2 (35-45) mmHg pO2 (75-100) mmHg Base Excess (-2.0-2.0) O2 Saturation (94-100) g/dF ABG pH (7.35-7.45) ABG HCO3 (22-28) ABG O2 Sat (Measured) (95-100) % [place] Test Hemoglobin Carboxyhemoglobin (0.0-6.9) % THgb Methemoglobin (1.4-1.5) % Potassium (3.5-5.1) Temperature C POC O2 Flow Rate % Sodium (135-145) mmol/L Chloride (98-107) mmol/L Carbon Dioxide (22-30) mmol/L Anion Gap BUN (7-17) mg/dL Creatinine (0.52-1.04) mg/dL Estimated GFR ML/MIN Glucose (74-106) mg/dL POC Glucometer 124 H (74 to 106) mg/dL Lactic Acid (0.4-2.0) Calcium (8.4-10.2) mg/dL Phosphorus (2.5-4.5) mg/dL Magnesium (1.6-2.3) mg/dL Total Bilirubin (0.2-1.3) mg/dL AST (14-36) U/L ALT (0-35) U/L Alkaline Phosphatase (38-126) U/L Troponin I (0.000-0.033) ng/mL NT-Pro-B Natriuret Pep (<300) pg/mL Serum Total Protein (6.3-8.2) g/dL Albumin (3.5-5.0) g/dL Lipase (23-300) U/L Procalcitonin 0.502 H (0.030-0.080) ng/mL Influenza Type A Ag NEGATIVE (NEGATIVE) Influenza Type B Ag NEGATIVE (NEGATIVE) RSV (PCR) NEGATIVE (NEGATIVE) SARS-CoV-2 (PCR) NEGATIVE (NEGATIVE) 03/11/24 03/11/24 03/11/24 Range/Units 05:55 05:55 05:55 WBC (3.98-10.04) x10^3/uL RBC (3.93-5.22) x10^6/uL Hgb (11.2-15.7) g/dL Hct (34.1-44.9) % MCV (79.4-94.8) fL MCH (25.6-32.2) pg MCHC (32.2-35.5) g/dL RDW (11.7-14.4) % Plt Count (182-369) x10^3/uL MPV (9.4-12.3) fL Segmented Neutrophils (34.0-71.1) % Band Neutrophils (0.0-2.0) % Lymphocytes (Manual) (19.3-51.7) % Monocytes (Manual) (4.7-12.5) % Hypochromia Platelet Estimate (NORMAL) RBC Morphology Anisocytosis Ovalocytes D-Dimer 1.80 H* (0.0-0.50) mg/L Puncture Site pCO2 (35-45) mmHg pO2 (75-100) mmHg Base Excess (-2.0-2.0) O2 Saturation (94-100) g/dF ABG pH (7.35-7.45) ABG HCO3 (22-28) ABG O2 Sat (Measured) (95-100) % [place] Test Hemoglobin Carboxyhemoglobin (0.0-6.9) % THgb Methemoglobin (1.4-1.5) % Potassium (3.5-5.1) Temperature C POC O2 Flow Rate % Sodium (135-145) mmol/L Chloride (98-107) mmol/L Carbon Dioxide (22-30) mmol/L Anion Gap BUN (7-17) mg/dL Creatinine (0.52-1.04) mg/dL Estimated GFR ML/MIN Glucose (74-106) mg/dL POC Glucometer (74 to 106) mg/dL Lactic Acid (0.4-2.0) Calcium (8.4-10.2) mg/dL Phosphorus (2.5-4.5) mg/dL Magnesium (1.6-2.3) mg/dL Total Bilirubin (0.2-1.3) mg/dL AST (14-36) U/L ALT (0-35) U/L Alkaline Phosphatase (38-126) U/L Troponin I 0.032 (0.000-0.033) ng/mL NT-Pro-B Natriuret Pep 34952 (<300) pg/mL Serum Total Protein (6.3-8.2) g/dL Albumin (3.5-5.0) g/dL Lipase (23-300) U/L Procalcitonin (0.030-0.080) ng/mL Influenza Type A Ag (NEGATIVE) Influenza Type B Ag (NEGATIVE) RSV (PCR) (NEGATIVE) SARS-CoV-2 (PCR) (NEGATIVE) 03/11/24 03/11/24 03/11/24 Range/Units 05:55 05:55 05:44 WBC 20.0 H (3.98-10.04) x10^3/uL RBC 3.35 L (3.93-5.22) x10^6/uL Hgb 9.3 L (11.2-15.7) g/dL Hct 34.8 (34.1-44.9) % MCV 103.9 H (79.4-94.8) fL MCH 27.8 (25.6-32.2) pg MCHC 26.7 L (32.2-35.5) g/dL RDW 17.1 H (11.7-14.4) % Plt Count 403 H (182-369) x10^3/uL MPV 11.2 (9.4-12.3) fL Segmented Neutrophils 81 H (34.0-71.1) % Band Neutrophils 1 (0.0-2.0) % Lymphocytes (Manual) 16 L (19.3-51.7) % Monocytes (Manual) 2 L (4.7-12.5) % Hypochromia 1+ Platelet Estimate NORMAL (NORMAL) RBC Morphology ABNORMAL Anisocytosis 1+ Ovalocytes 1+ D-Dimer (0.0-0.50) mg/L Puncture Site RRA pCO2 9 L* (35-45) mmHg pO2 116 H (75-100) mmHg Base Excess -27.9 L (-2.0-2.0) O2 Saturation 94.2 (94-100) g/dF ABG pH 6.96 L* (7.35-7.45) ABG HCO3 2.0 L* (22-28) ABG O2 Sat (Measured) 98.5 (95-100) % [place] Test yes Hemoglobin 9.8 Carboxyhemoglobin 3.8 (0.0-6.9) % THgb Methemoglobin 0.5 L (1.4-1.5) % Potassium 5.0 5.1 (3.5-5.1) Temperature 37.0 C POC O2 Flow Rate 21 % Sodium 138 (135-145) mmol/L Chloride 91 L (98-107) mmol/L Carbon Dioxide < 5 L* (22-30) mmol/L Anion Gap TNP BUN 31 H (7-17) mg/dL Creatinine 6.29 H (0.52-1.04) mg/dL Estimated GFR 6.5 ML/MIN Glucose 188 H (74-106) mg/dL POC Glucometer (74 to 106) mg/dL Lactic Acid (0.4-2.0) Calcium 8.9 (8.4-10.2) mg/dL Phosphorus 12.3 H (2.5-4.5) mg/dL Magnesium 2.6 H (1.6-2.3) mg/dL Total Bilirubin 0.40 (0.2-1.3) mg/dL AST 73 H (14-36) U/L ALT 49 H (0-35) U/L Alkaline Phosphatase 67 (38-126) U/L Troponin I (0.000-0.033) ng/mL NT-Pro-B Natriuret Pep (<300) pg/mL Serum Total Protein 7.3 (6.3-8.2) g/dL Albumin 4.3 (3.5-5.0) g/dL Lipase 1402 H (23-300) U/L Procalcitonin (0.030-0.080) ng/mL Influenza Type A Ag (NEGATIVE) Influenza Type B Ag (NEGATIVE) RSV (PCR) (NEGATIVE) SARS-CoV-2 (PCR) (NEGATIVE) 03/11/24 Range/Units 05:30 WBC (3.98-10.04) x10^3/uL RBC (3.93-5.22) x10^6/uL Hgb (11.2-15.7) g/dL Hct (34.1-44.9) % MCV (79.4-94.8) fL MCH (25.6-32.2) pg MCHC (32.2-35.5) g/dL RDW (11.7-14.4) % Plt Count (182-369) x10^3/uL MPV (9.4-12.3) fL Segmented Neutrophils (34.0-71.1) % Band Neutrophils (0.0-2.0) % Lymphocytes (Manual) (19.3-51.7) % Monocytes (Manual) (4.7-12.5) % Hypochromia Platelet Estimate (NORMAL) RBC Morphology Anisocytosis Ovalocytes D-Dimer (0.0-0.50) mg/L Puncture Site pCO2 (35-45) mmHg pO2 (75-100) mmHg Base Excess (-2.0-2.0) O2 Saturation (94-100) g/dF ABG pH (7.35-7.45) ABG HCO3 (22-28) ABG O2 Sat (Measured) (95-100) % [place] Test Hemoglobin Carboxyhemoglobin (0.0-6.9) % THgb Methemoglobin (1.4-1.5) % Potassium (3.5-5.1) Temperature C POC O2 Flow Rate % Sodium (135-145) mmol/L Chloride (98-107) mmol/L Carbon Dioxide (22-30) mmol/L Anion Gap BUN (7-17) mg/dL Creatinine (0.52-1.04) mg/dL Estimated GFR ML/MIN Glucose (74-106) mg/dL POC Glucometer (74 to 106) mg/dL Lactic Acid 17.0 H (0.4-2.0) Calcium (8.4-10.2) mg/dL Phosphorus (2.5-4.5) mg/dL Magnesium (1.6-2.3) mg/dL Total Bilirubin (0.2-1.3) mg/dL AST (14-36) U/L ALT (0-35) U/L Alkaline Phosphatase (38-126) U/L Troponin I (0.000-0.033) ng/mL NT-Pro-B Natriuret Pep (<300) pg/mL Serum Total Protein (6.3-8.2) g/dL Albumin (3.5-5.0) g/dL Lipase (23-300) U/L Procalcitonin (0.030-0.080) ng/mL Influenza Type A Ag (NEGATIVE) Influenza Type B Ag (NEGATIVE) RSV (PCR) (NEGATIVE) SARS-CoV-2 (PCR) (NEGATIVE) - Progress Progress: improved Air Movement: fair Blood Culture(s) Obtained: No Antibiotics given: Yes Counseled pt/family regarding: lab results, diagnosis, need for follow-up, rad results <CARMEN BOWIE - Last Filed: 03/11/24 06:27> <GILL CACERES - Last Filed: 03/11/24 08:37> - Progress Progress Note: This patient presents with dyspnea, most likely secondary to volume overload. Differential diagnosis includes CHF exacerbation, renal failure, PNA, ACS, COPD exacerbation.Will evaluate for pneumothorax, asthma, COPD exacerbation, allergic etiologies, or infectious etiologies such as PNA. Plan: supplemental O2, CXR, labs, blood cx, lactate, troponin, close hemodynamic monitoring, serial reassessment DuoNebs, SoluMedrol 125mg, Lasix 40mg POC glucose 33 in ER, IM Glucagon given. 03/11/24 06:29 Glucose increased to 180 aft Glucagon. Labs remarkable for a white count of 20, hemoglobin 9.3 which is similar to her baseline, potassium of 5, chloride of 91, creatinine of 6.29 it appears that her baseline ranges from 3-5, lactic acid of 17, BNP of 32,000, lipase of 1402, procalcitonin of 0.502, D-dimer elevated at 1.8 but unable to perform contrast study due to her renal failure so CT without contrast was ordered. Patient was started on Vanco and Zosyn. Blood cultures were unable to be obtained due to difficulty of stick prior to antibiotic initiation. Patient is satting at 100% on room air. Feel that her shortness of breath and breathing is likely compensatory due to her metabolic acidosis which is verified on ABG with a pCO2 of 9, bicarb of 2 and a pH of 6.96. 200 mill equivalents of sodium HCO3 was given IV to help correct her acidosis. Patient will need transfer to facility with dialysis capabilities. I reached out to [facility] where Dr. Hernandez autoaccepted at [phone] for ER to ER transer. Sign out care to Dr. Val[place] [address] results pending. (CARMEN BOWIE) 03/11/24 07:[address] Bowie after intro to pt, and discussion of disposition and transfer arrangements, medical Hx, presneting symptoms, and events and findings during ER visit. Pt has been accepted at [facility] ER to ER by Dr. Garcia and the ALS transfer is arranged for 0900 today so this will add at least 2 hours to the time line. Pt is stable with BP maintained by judicious IVF and her possible sepsis is being treated by Vanc and Zosyn Ab Tx, - she will be awaiting dialysis up there as well. 03/11/24 07:18 We contacted [facility] to try and move up transfer to earlier as pt now in Afib and pt less alert, we are checking ABG again, BP in 70 to 80 range. 03/11/24 07:52 Pt BP started to decrease into 60s so another bolus of NS was begun and levodrip started on standby. Glucose was in 120-130 range. O2 sat 100%. Pt then had cardiac arrest and CPR begun and 1 amp epi given with ROSC in less than 3-5 minutes and BP in 120s. RSI performed with 100 mg ketamine and 100 mg Succ and good bilateral BS with end tidal CO2 of 25 ( pt has low CO2 before). [facility] notified of change in condition. HR in 50-70s. BP 90s to 120s. Now EKG junctional in 50s. Discussed with Dr. Tyler at [facility] to update. We did get an additional IV for access and ET tube pulled back after x-ray confirmed at [facility] to right - Good Bilat. BS after repositioning of tube. . BP dropped back into 70s and 3rd bolus started and levo drip restarted with response BP in the 80s. EMS needs to proceed to be available for additional service CARYN and we opted to avoid further delay for central line procedure attempt, and to get pt CARYN to higher level of care. . 03/11/24 08:30 total critical care time at least 120 minutes due to hypotension, cardiac arrest, resus, RSI, and requiring drip of levo. (GILL CACERES) Medical Desision Making - Diagnostic Testing Diagnostic test were ordered, analyzed, and reviewed by me: Yes Radiological Interpretation: Interpreted by me, Reviewed by me, Teleradiologist Report - Risk of complications The pt has a mod risk of morbidity or mortality based on: Need for prescription drug management The pt has a high risk of morbidity or mortality based on: Decision regarding hospitilization or escalation of hosp level of care <CARMEN BOWIE - Last Filed: 03/11/24 06:27> - Departure Departure Disposition: Transfer ([facility]) Critical Care Time: No <CARMEN BOWIE - Last Filed: 03/11/24 06:27> - Departure Critical Care Time: Yes Critical Care Time(excluding separately billable procedures): Critical 105-134 mins (Resuc from cardiac arrest, RSI intubation, critical treatment requiring levofed drip.120 minutes at least) <GILL CACERES - Last Filed: 03/11/24 08:37> - Departure Clinical Impression: Congestive heart failure, Cardiomegaly, Metabolic acidosis, Shortness of breath, Sepsis, Pneumonia, Chronic kidney disease with end stage renal failure on dialysis Condition: Stable Referrals: [facility] [Primary Care Provider] - Follow up/PCP as directed Instructions: Heart Failure, Low Blood Sugar, Adult (DC), Pneumonia, Adult (DC)
[2024-03-11] MEDS ORDERED: GlucaGen 1 MG ONE (05:10)
[2024-03-11] MEDS ORDERED: Glutose 15 GM ORAL GEL PO ONE (05:10)
[2024-03-11] MEDS ORDERED: Sterile H2O 10 ml IJ ONE ×2 (05:10→06:03)
[2024-03-11] MEDS ORDERED: DUONEB 0.5-3 MG/3 ml Neb IH ONE (05:13)
[2024-03-11] MEDS: GlucaGen 1 MG IM ONE (05:14)
[2024-03-11] MEDS: D50W 50 ml Abboject IV ONE (05:25)
[2024-03-11] MEDS: DUONEB 0.5-3 MG/3 ml Neb IH ONE (05:30)
[2024-03-11 05:47] LABS: ABG HEMOGLOBIN 9.8; ABG POTASSIUM 5.1 (3.5-5.1); ARTERIAL BLD GAS O2 SATURATION 98.5 % (95-100); ARTERIAL BLOOD GAS BASE EXCESS -27.9 (-2.0-2.0); ARTERIAL BLOOD GAS FIO2 21 %; ARTERIAL BLOOD GAS PO2 116 mmHg (75-100); CARBOXYHEMOGLOBIN 3.8 % THgb (0.0-6.9); HGB O2 SAT 94.2 g/dF (94-100); Methhemoglobin 0.5 % (1.4-1.5)
[2024-03-11 05:48] LABS: ARTERIAL BLOOD GAS PCO2 9 mmHg (35-45); ARTERIAL BLOOD GAS pH 6.96 (7.35-7.45)
[2024-03-11 05:49] LABS: ABG SITE RRA; ALLEN TEST OK? yes
[2024-03-11 05:54] LABS: Hematocrit 34.8 % (34.1-44.9); Hemoglobin 9.3 g/dL (11.2-15.7); Mean Cell Volume 103.9 fL (79.4-94.8); Mean Corpuscular Hemoglobin 27.8 pg (25.6-32.2); Mean Corpuscular Hgb Concent. 26.7 g/dL (32.2-35.5); Mean Platelet Volume 11.2 fL (9.4-12.3); Platelet Count 403 x10^3/uL (182-369); Red Blood Count 3.35 x10^6/uL (3.93-5.22); Red Cell Distribution Width 17.1 % (11.7-14.4)
[2024-03-11 06:02] VITALS: TEMP 96.4
[2024-03-11 06:02] LABS: ALBUMIN 4.3 g/dL (3.5-5.0); ALKALINE PHOSPHATASE 67 U/L (38-126); BLOOD UREA NITROGEN 31 mg/dL (7-17); CHLORIDE 91 mmol/L (98-107); Calcium 8.9 mg/dL (8.4-10.2); Glucose 188 mg/dL (74-106); LIPASE 1402 U/L (23-300); MAGNESIUM 2.6 mg/dL (1.6-2.3); SGOT/AST 73 U/L (14-36); SGPT/ALT 49 U/L (0-35); SODIUM 138 mmol/L (135-145); Total Protein 7.3 g/dL (6.3-8.2)
[2024-03-11] MEDS ORDERED: Lasix 40 MG/4 ML ONE (06:03)
[2024-03-11] MEDS ORDERED: Sodium Chloride 0.9% 1000 ML 1,000 ML ONE ×3 (06:03→08:17)
[2024-03-11] MEDS ORDERED: solu-MEDROL ONE (06:03)
[2024-03-11] MEDS: solu-MEDROL 125 MG, Sterile H2O 10 ml 2 ML IV ONE (06:06)
[2024-03-11 06:08] LABS: Creatinine 1 6.29 mg/dL (0.52-1.04); EST GLOMERULAR FILTRATION RATE 6.5 ML/MIN
[2024-03-11] MEDS: Sodium Chloride 0.9% 1000 ML 1,000 ML IV STA ×2 (06:08→07:29)
[2024-03-11 06:09] LABS: PHOSPHOROUS 12.3 mg/dL (2.5-4.5)
[2024-03-11] MEDS ORDERED: MORPHINE SULFATE 2 MG INJ ONE (06:13)
[2024-03-11] MEDS ORDERED: Sodium Bicarbonate 50 MEQ/50 ML VIAL ONE (06:14)
[2024-03-11] MEDS: MORPHINE SULFATE 2 MG INJ IV ONE (06:15)
[2024-03-11] MEDS: Sodium Bicarbonate 50 MEQ/50 ML VIAL IV ONE (06:17)
[2024-03-11 06:24] LABS: Carbon Dioxide < 5 mmol/L (22-30)
[2024-03-11] MEDS ORDERED: VANCOMYCIN 2 GRAM/400 ML BAG 2 GM/400 ML PIGGYBACK IV ONE (06:41)
[2024-03-11] MEDS: VANCOMYCIN 2 GRAM/400 ML BAG 2 GM/400 ML PIGGYBACK IV ONE (06:42)
[2024-03-11 06:51] LABS: BAND 1 % (0.0-2.0); Lymphocytes 16 % (19.3-51.7); Monocyte 2 % (4.7-12.5); Neutrophils 81 % (34.0-71.1); Platelet Estimate NORMAL (NORMAL); Total Cells Counted 100
[2024-03-11] MEDS: Lasix 40 MG/4 ML IV ONE (06:51)
[2024-03-11 06:52] LABS: ANISOCYTOSIS 1+; Hypochromia 1+; Ovalocytes 1+
--- NOTE | 2024-03-11 07:05 | XRAY ---
CLINICAL HISTORY: sob COMPARISON: Prior X-ray dated 12/29/2023 for comparison. TECHNIQUE: Contiguous axial CT images of the chest were acquired without administration of intravenous contrast. Coronal and sagittal reconstructions were obtained. One of the following dose reduction techniques were utilized for this exam: Automated exposure control, adjustment of the mA and/or kV according to patient size, use of iterative reconstruction. FINDINGS: Lungs: Calcified nodular opacity of 4 mm in the superior segment of right upper lobe. No evidence of consolidation or collapse. No evidence of interstitial lung disease or emphysema. No pleural effusion or pleural thickening. Mediastinum: The mediastinum is normal in size and contour. No mediastinal mass or abnormal lymphadenopathy. Cardiomegaly. Atherosclerotic changes in aorta and coronary arteries. Main pulmonary artery dilated measuring 30 mm in caliber. Hilar Structures: Few calcified lymph nodes in right hilar region. The hilar structures appear normal without enlargement or abnormality. Trachea and Main Bronchi: The trachea and main bronchi are patent without evidence of obstruction or abnormality. Chest Wall: The chest wall is unremarkable with no evidence of soft tissue or bony abnormalities. Upper Abdomen: Visualized portions of the liver, spleen, adrenal glands, and kidneys are unremarkable. Bones: Spondylotic changes in thoracic spine. Visualized osseous structures are normal, no evidence of fracture or lytic/sclerotic lesions. IMPRESSION: 1. Calcified nodular opacity of 4 mm in superior segment of right upper lobe, suggesting old granuloma. new finding. According to Fleischner Society guidelines no need for follow-up. 2. Cardiomegaly and pulmonary artery hypertension, stable. 3. Total resolution of signs of pulmonary edema detected in prior study. Electronically Signed by: Jessika Cheney MD. (03/11/2024 07:01:46 EST)
[2024-03-11 07:08] LABS: INFLUENZA A NEGATIVE (NEGATIVE); INFLUENZA B NEGATIVE (NEGATIVE); RESPIRATORY SYNCTIAL VIRUS NEGATIVE (NEGATIVE); SARS-CoV-2 Xpert Express NEGATIVE (NEGATIVE)
[2024-03-11] MEDS ORDERED: NOREPINEPHRINE 8 MG/250 ML-D5W 8 MG/250 ML PLAST..BAG IV ONE (07:31)
[2024-03-11] MEDS ORDERED: NOREPINEPHRINE 8 MG/250 ML-D5W 8 MG/250 ML PLAST..BAG IV PRN (07:32)
--- NOTE | 2024-03-11 07:49 | XRAY ---
Indication: Short of breath. Comparison: December 29, 2023 Portable chest inflated and is now clear. Heart not enlarged for AP portable technique. Bony thorax intact again with osteopenia and mild degenerative changes. Impression: Nonacute chest with chronic bony findings.
[2024-03-11] MEDS ORDERED: Ativan 2 MG/1 ML VIAL ONE (08:08)
[2024-03-11 08:48] VITALS: BP 71/38; PULSE 55; RESP 14; O2SAT 93
[2024-03-11] MEDS: PIPERACILLIN/TAZOBACTAM 3.375 GM in Sodium Chloride 100ML MINI-BAG PLUS 100 ML IV ONE (08:50)
--- NOTE | 2024-03-11 09:13 | XRAY ---
CLINICAL HISTORY: intubation COMPARISON: 03/11/2024 CT TECHNIQUE: CR chest, frontal projection. FINDINGS: A newly inserted ETT, its tip is about 1 cm from the linda. The relative increase in the left hemithorax density is likely attributable to patient rotation. Limited evaluation of the cardiac shadow given an AP projection. Clear both costophrenic angles. No acute osseous abnormality. IMPRESSION: 1. A newly inserted ETT, its tip is about 1 cm from the linda, needs to be pulled 1-2 cm. 2. No suggested new finding compared to the CT study earlier this day. [facility] ER was called at [phone] at 8:04 AM CEMENT MASON, 03/11/2024, and Karen (RN) was informed regarding the presence of significant medical findings in the report. Electronically Signed by: Jessika Cheney MD. (03/11/2024 09:09:03 EST)
[2024-03-12 14:32] LABS: Insulin 0.4 uIU/mL (2.6-24.9)
== END 2024-03-11 08:30 | disposition short-term general hospital (02) ==
LOC: ED 04:53
DX: A41.9 Sepsis, unspecified organism (principal); J18.9 Pneumonia, unspecified organism; R06.02 Shortness of breath; I13.11 Hypertensive heart and chronic kidney disease without heart failure, with stage 5 chronic kidney disease, or end stage renal disease; I50.9 Heart failure, unspecified; E11.22 Type 2 diabetes mellitus with diabetic chronic kidney disease; N18.6 End stage renal disease; E87.20 Acidosis, unspecified; R11.2 Nausea with vomiting, unspecified; R19.7 Diarrhea, unspecified; Z79.84 Long term (current) use of oral hypoglycemic drugs; Z79.4 Long term (current) use of insulin; Z79.899 Other long term (current) drug therapy; Z99.2 Dependence on renal dialysis
CPT/HCPCS: 0241U; 31500; 36415; 36600; 51702; 71045; 71250; 80053; 82375; 82803; 82947; 83525; 83605; 83690; 83735; 83880; 84100; 84145; 84484; 84681; 85025; 85379; 93005; 94002; 94640; 96360; 96361; 96365; 96372; 96374; 96375; 99291; 99292; 99285; J1610; J1940; J2060; J2270; J2919; A9270-GY; J3370